=== PATIENT | male | born 1950 | race Two or more races ===

== ENCOUNTER 2018-07-27 10:47 | Inpatient (IN) | payer MEDICAID | END 2018-07-30 11:35 | disposition home or self-care (01) | LOC: ER 10:47 → TELE 17:25 → TELE-WESTW 21:35 | DX: G40.909 Epilepsy, unspecified, not intractable, without status epilepticus (principal); E11.649 Type 2 diabetes mellitus with hypoglycemia without coma; I69.351 Hemiplegia and hemiparesis following cerebral infarction affecting right dominant side; E78.5 Hyperlipidemia, unspecified; I69.320 Aphasia following cerebral infarction; I10 Essential (primary) hypertension ==

== ENCOUNTER 2018-08-04 10:29 | Inpatient (IN) | payer MEDICAID ==
[~2018-08-04] VITALS: Ht 172.7 cm; Wt 78.8 kg
[~2018-08-04 10:29] MED LIST: ASPI81TA10 PO; CARB200T4 PO; ENAL20TA70 PO; GLIP-116 PO; METF1000 PO; SIMV-8 PO
[2018-08-04 13:29] LABS: Basophils # (auto) 0.1 uL; Basophils % (auto) 0.6 % (0.0-2.0); Eosinophils # (auto) 0 uL; Eosinophils % (auto) 0.4 % (0.0-7.0); Hematocrit 32.5 % (41.0-53.0); Hemoglobin 10.6 g/dL (13.5-17.5); Lymphocytes # (auto) 0.9 uL; Lymphocytes % (auto) 9.2 % (10.0-50.0); Mean Corpuscular Hemoglobin 30.6 pg (28.0-32.0); Mean Corpuscular Hgb Conc. 32.6 g/dL (32.0-36.0); Mean Corpuscular Volume 93.8 fL (80.0-100.0); Monocytes # (auto) 0.3 uL; Monocytes % (auto) 2.8 % (0.0-12.0); Neutrophils # (auto) 8.2 uL; Platelet Count (auto) 350 10^3/uL (140-450); Red Blood Cells 3.46 10^6/uL (4.5-5.90); Red Cell Distribution Width 13.6 % (11.8-14.3); White Blood Cell 9.4 10^3/uL (4.4-10.8)
[2018-08-04 13:43] LABS: Potassium 5.2 mmol/L (3.5-5.1)
[2018-08-04 13:50] LABS: Albumin 3.5 g/dL (3.4-5.0); Bilirubin, Total 0.4 mg/dL (0.2-1.0); Calcium 8.5 mg/dL (8.5-10.1); Magnesium 2.8 mg/dL (1.6-2.6); Total Protein 7.7 g/dL (6.4-8.2)
[2018-08-04] MEDS ORDERED: LORazepam 0.5 MG TAB PO PRN (19:00)
[2018-08-04] MEDS ORDERED: DEXTROSE (50%) 50ML SYRG IV PRN (19:00)
[2018-08-04] MEDS ORDERED: TEMAZEPAM 15 MG CAP PO PRN (19:00)
[2018-08-04] MEDS ORDERED: NITROGLYCERIN 0.4 MG SL TAB SL PRN (19:00)
[2018-08-04] MEDS ORDERED: LEVETIRACETAM 500 MG TAB PO ONE (19:00)
[2018-08-04] MEDS ORDERED: ACETAMINOPHEN 500 MG TAB PO PRN (19:00)
[2018-08-04] MEDS ORDERED: LORazepam 2MG/ML-1ML VIAL IV PRN (19:00)
[2018-08-04] MEDS ORDERED: MORPHINE SULFATE 4 MG/ML SYR/VIAL IV PRN ×2 (19:00)
[2018-08-04] MEDS ORDERED: LACTULOSE 20Gm/30ML SOLN PO PRN (19:00)
[2018-08-04] MEDS ORDERED: HYDROcodone-ACET 5/325MG TAB PO PRN (19:00)
[2018-08-04] MEDS ORDERED: PROMETHAZINE HCL 25 MG/ML 1ML IV PRN (19:00)
[2018-08-04] MEDS: SODIUM CHLORIDE 0.9% 1,000 ML IV SCH (19:45)
[2018-08-04] MEDS: glipiZIDE 5 MG TAB PO SCH (19:45)
[2018-08-04] MEDS: ACCU-CHEK COMFORT CURVE STRIP VI SCH (22:00)
[2018-08-04] MEDS: InsuLIN REG 1unit/0.01ml Soln (100units/ml) SC SCH (22:30)
[2018-08-04] MEDS: LEVETIRACETAM 500 MG TAB PO SCH (22:30)
[2018-08-05] MEDS: ACCU-CHEK COMFORT CURVE STRIP VI SCH ×4 (06:45→22:22)
[2018-08-05] MEDS: InsuLIN REG 1unit/0.01ml Soln (100units/ml) SC SCH ×4 (06:45→22:00)
[2018-08-05] MEDS: glipiZIDE 5 MG TAB PO SCH ×3 (07:00→17:04)
[2018-08-05] MEDS: SODIUM CHLORIDE 0.9% 1,000 ML IV SCH ×2 (08:22→21:28)
[2018-08-05] MEDS: ASPirin-EC 81 mg tab PO SCH (09:19)
[2018-08-05] MEDS: PANTOPRAZOLE 40 MG TAB PO SCH (09:19)
[2018-08-05] MEDS: ENOXAPARIN SOD 40 MG/0.4 ML SYRINGE SC SCH (09:19)
[2018-08-05] MEDS: carBAMazepine 200 MG TAB PO SCH (09:20)
[2018-08-05] MEDS: LEVETIRACETAM 500 MG TAB PO SCH ×2 (09:20→22:22)
[2018-08-05 09:35] LABS: Alcohol, Urine < 3.0 mg/dL (0-5); Amphetamine Screen, Urine NEGATIVE (NEGATIVE); Barbiturate Scree,Urine NEGATIVE (NEGATIVE); Benzodiazephine Screen, Urine NEGATIVE (NEGATIVE); Cannabinoid Screen, Urine NEGATIVE (NEGATIVE); Cocaine Screen, Urine NEGATIVE (NEGATIVE); Opiate Scree,Urine NEGATIVE (NEGATIVE); Phencyclidine Screen, Urine NEGATIVE (NEGATIVE)
[2018-08-05 09:37] LABS: Urine Bacteria NONE SEEN /hpf (None Seen); Urine Blood Negative /uL (Negative); Urine Specific Gravity 1.016 (1.001-1.035); Urine WBC <1 /hpf (0 - 3)
[2018-08-05] MEDS ORDERED: ENALAPRIL MALEATE 10 MG TAB PO SCH (10:00)
[2018-08-05 14:00] VITALS: BP 150/70
--- NOTE | 2018-08-05 14:00 | NUR ---
Telemetry admit from ER [facility] SRIVAST[facility] admitted to Telemetry unit after SBAR received. Patient oriented to CHARLEEN GASTON, primary RN, unit, room, bed, and unit policies regarding patient care and visiting hours. Patient now on continuous telemetry monitoring, tele box # 15 and telemetry reading on arrival to unit is . Patient placed on bedside oxygen, weighed by bed scale and encouraged to call if they need something. All questions and concerns addressed, patient verbalized understanding.
--- NOTE | 2018-08-05 14:00 | NUR ---
Dr. Diehl at bedside.
--- NOTE | 2018-08-05 14:30 | NUR ---
MRSA sent to the lab.
[2018-08-05] MEDS ORDERED: PNEUMOCOCCAL VACC POLYS 25 MCG/0.5 ML VIAL IM ONE (14:45)
[2018-08-05] MEDS ORDERED: INFLUENZA QUAD 2018-2019 0.5 ML SYRG IM ONE (14:45)
--- NOTE | 2018-08-05 14:45 | NUR ---
Photos taken to left FA prior admission.
[2018-08-05 17:12] VITALS: BP 144/87
[2018-08-05 22:00] VITALS: BP 146/80
[2018-08-06 04:45] VITALS: BP 121/72
[2018-08-06 06:09] LABS: Basophils # (auto) 0.1 uL; Basophils % (auto) 2.3 % (0.0-2.0); Eosinophils # (auto) 0.2 uL; Hematocrit 28.8 % (41.0-53.0); Hemoglobin 9.5 g/dL (13.5-17.5); Lymphocytes # (auto) 1.5 uL; Lymphocytes % (auto) 27.9 % (10.0-50.0); Mean Corpuscular Hemoglobin 31.1 pg (28.0-32.0); Mean Corpuscular Volume 94.2 fL (80.0-100.0); Monocytes # (auto) 0.3 uL; Monocytes % (auto) 6.2 % (0.0-12.0); Neutrophils # (auto) 3.2 uL; Neutrophils % (auto) 59.6 % (37.0-80.0); Nucleated Red Blood Cells % 0.1 %; Platelet Count (auto) 307 10^3/uL (140-450); Red Blood Cells 3.05 10^6/uL (4.5-5.90); Red Cell Distribution Width 13.5 % (11.8-14.3); White Blood Cell 5.3 10^3/uL (4.4-10.8)
[2018-08-06 06:27] LABS: Albumin 2.8 g/dL (3.4-5.0); Potassium 4.5 mmol/L (3.5-5.1)
[2018-08-06 06:28] LABS: BUN/Creatinine Ratio 17.4; Bilirubin, Total 0.4 mg/dL (0.2-1.0); Total Protein 6.4 g/dL (6.4-8.2)
[2018-08-06] MEDS: InsuLIN REG 1unit/0.01ml Soln (100units/ml) SC SCH ×4 (07:00→21:26)
[2018-08-06] MEDS: glipiZIDE 5 MG TAB PO SCH (07:09)
[2018-08-06] MEDS: ACCU-CHEK COMFORT CURVE STRIP VI SCH ×4 (07:09→21:25)
[2018-08-06 08:00] VITALS: BP 131/74
[2018-08-06] MEDS: ASPirin-EC 81 mg tab PO SCH (09:21)
[2018-08-06] MEDS: PANTOPRAZOLE 40 MG TAB PO SCH (09:21)
[2018-08-06] MEDS: carBAMazepine 200 MG TAB PO SCH (09:21)
[2018-08-06] MEDS: LEVETIRACETAM 500 MG TAB PO SCH ×2 (09:21→21:25)
[2018-08-06] MEDS: ENOXAPARIN SOD 40 MG/0.4 ML SYRINGE SC SCH (09:21)
[2018-08-06 09:33] VITALS: BP 131/74
[2018-08-06] MEDS: SODIUM CHLORIDE 0.9% 1,000 ML IV SCH (10:48)
--- NOTE | 2018-08-06 11:25 | NUR ---
BS 38, 50 % dextrose given, Dr. Diehl paged.
--- NOTE | 2018-08-06 11:40 | NUR ---
BS 199, will continue to monitor.
--- NOTE | 2018-08-06 11:41 | NUR ---
called back received new order, noted and carried out.
[2018-08-06 13:31] VITALS: BP 136/80
--- NOTE | 2018-08-06 14:30 | NUR ---
Dressing changed to the left FA, clean with NSS, pat dry put Thera honey and cover with Optifoam.
[2018-08-06] MEDS: ENALAPRIL MALEATE 10 MG TAB PO SCH (15:12)
[2018-08-06 16:58] VITALS: BP 125/71
[2018-08-06 22:11] VITALS: BP_SYST 126; BP_SYST 136; BP_DIAS 73
--- NOTE | 2018-08-07 04:00 | NUR ---
Dressing changed_ lateral side of LEFT FOREARM Clean with normal saline, patted dry with sterile gauze, covered with optifoam gentle. Yosef honey is not available to apply on wound at this time. Wound ( skin tear) is clean, no blood, drainage coming out. Patient tolerated well and no complained of pain.
[2018-08-07] MEDS: SODIUM CHLORIDE 0.9% 1,000 ML IV SCH ×2 (04:25→13:28)
[2018-08-07 05:00] VITALS: BP 139/73
[2018-08-07] MEDS: ACCU-CHEK COMFORT CURVE STRIP VI SCH ×4 (06:20→22:15)
[2018-08-07] MEDS: InsuLIN REG 1unit/0.01ml Soln (100units/ml) SC SCH ×4 (06:20→22:00)
--- NOTE | 2018-08-07 08:00 | NUR ---
Opening Shift Note Assumed care of patient, awake and alert. No S/S of distress/SOB or pain. Skin is warm and dry to touch, no s/s of hyperglycemia or hypoglycemia noted. Instructed on POC and to call for assist PRN, will continue to monitor for changes Q1hr and PRN.
[2018-08-07] MEDS: LEVETIRACETAM 500 MG TAB PO SCH ×2 (08:58→22:15)
[2018-08-07] MEDS: ENALAPRIL MALEATE 10 MG TAB PO SCH (08:58)
[2018-08-07] MEDS: carBAMazepine 200 MG TAB PO SCH (08:58)
[2018-08-07] MEDS: ASPirin-EC 81 mg tab PO SCH (08:58)
[2018-08-07] MEDS: ENOXAPARIN SOD 40 MG/0.4 ML SYRINGE SC SCH (08:58)
[2018-08-07] MEDS: PANTOPRAZOLE 40 MG TAB PO SCH (08:58)
[2018-08-07 09:47] VITALS: BP 126/65
[2018-08-07 14:46] VITALS: BP 132/70
[2018-08-07 16:51] VITALS: BP 142/72
[2018-08-07 21:33] VITALS: BP 141/77
[2018-08-07 22:19] VITALS: BP_SYST 135; BP_SYST 141; BP_DIAS 76; BP_DIAS 77
[2018-08-08 05:34] VITALS: BP 135/74
[2018-08-08] MEDS: SODIUM CHLORIDE 0.9% 1,000 ML IV SCH (06:30)
[2018-08-08 06:42] LABS: Albumin 2.7 g/dL (3.4-5.0); Potassium 4.5 mmol/L (3.5-5.1)
[2018-08-08 06:43] LABS: Basophils # (auto) 0.1 uL; Basophils % (auto) 2.5 % (0.0-2.0); Eosinophils # (auto) 0.2 uL; Eosinophils % (auto) 4.2 % (0.0-7.0); Hematocrit 28.4 % (41.0-53.0); Hemoglobin 9.6 g/dL (13.5-17.5); Lymphocytes # (auto) 1.3 uL; Lymphocytes % (auto) 24.8 % (10.0-50.0); Mean Corpuscular Hemoglobin 31.8 pg (28.0-32.0); Mean Corpuscular Volume 93.6 fL (80.0-100.0); Monocytes # (auto) 0.4 uL; Monocytes % (auto) 6.9 % (0.0-12.0); Neutrophils # (auto) 3.2 uL; Neutrophils % (auto) 61.6 % (37.0-80.0); Platelet Count (auto) 308 10^3/uL (140-450); Red Blood Cells 3.03 10^6/uL (4.5-5.90); Red Cell Distribution Width 13.4 % (11.8-14.3); White Blood Cell 5.2 10^3/uL (4.4-10.8)
[2018-08-08] MEDS: InsuLIN REG 1unit/0.01ml Soln (100units/ml) SC SCH ×2 (06:44→11:30)
[2018-08-08] MEDS: ACCU-CHEK COMFORT CURVE STRIP VI SCH ×2 (06:44→11:46)
[2018-08-08 06:46] LABS: BUN/Creatinine Ratio 15.2; Bilirubin, Total 0.2 mg/dL (0.2-1.0); Total Protein 6.1 g/dL (6.4-8.2)
--- NOTE | 2018-08-08 07:55 | NUR ---
Opening Shift Note Assumed care of patient, awake and alert. On seizure precaution. No S/S of distress/SOB or pain. Instructed on POC and to call for assist PRN, bed locked in the lowest position, call light within easy reach, will continue to monitor for changes Q1hr and PRN.
[2018-08-08 08:00] VITALS: BP 143/79
[2018-08-08 09:00] VITALS: BP 143/79
[2018-08-08] MEDS: LEVETIRACETAM 500 MG TAB PO SCH (09:44)
[2018-08-08] MEDS: ENALAPRIL MALEATE 10 MG TAB PO SCH (09:45)
[2018-08-08] MEDS: ASPirin-EC 81 mg tab PO SCH (09:45)
[2018-08-08] MEDS: PANTOPRAZOLE 40 MG TAB PO SCH (09:45)
[2018-08-08] MEDS: carBAMazepine 200 MG TAB PO SCH (09:45)
--- NOTE | 2018-08-08 09:45 | NUR ---
DR. CHRISTY AT BEDSIDE. NEW ORDER D/C HOME.
[2018-08-08] MEDS: ENOXAPARIN SOD 40 MG/0.4 ML SYRINGE SC SCH (09:46)
--- NOTE | 2018-08-08 09:52 | NUR ---
PT REFUSED PNA VAC, AND FLU VAC, SON AT BEDSIDE. RISKS AND BENEFITS EXPLAINED.
[2018-08-08 11:07] VITALS: BP 143/97
--- NOTE | 2018-08-08 13:14 | NUR ---
Discharge instructions given as ordered. Encourage to follow up with DR. LAURIE FREEMAN on 08/16/18 @ 0900 as instructed. All questions and concerns addressed. Patient verbalized understanding. Medication reconciliation form completed and copy given to patient. Pt refused vaccines risks and benefits explained. IV removed with catheter intact, pressure dressing applied. Telemetry unit returned to [facility]. Patient taken to vehicle via wheelchair with all personal belongings, accompanied by staff and family member. No distress noted at time of departure.
[2018-08-08 13:24] VITALS: BP 146/71
== END 2018-08-08 13:00 | disposition home or self-care (01) | DRG 53 ==
LOC: ER 10:29 → EDBD 10:29 → TELE 18:51 → TELE-WESTW 08-05 13:50
PROVIDERS: ADMIT Internal Medicine; ATTEND Internal Medicine
DX: G40.409 Other generalized epilepsy and epileptic syndromes, not intractable, without status epilepticus (principal); E44.0 Moderate protein-calorie malnutrition; E11.21 Type 2 diabetes mellitus with diabetic nephropathy; E83.41 Hypermagnesemia; E87.5 Hyperkalemia; I69.351 Hemiplegia and hemiparesis following cerebral infarction affecting right dominant side; I69.320 Aphasia following cerebral infarction; E87.1 Hypo-osmolality and hyponatremia; D64.9 Anemia, unspecified; E11.22 Type 2 diabetes mellitus with diabetic chronic kidney disease; E78.5 Hyperlipidemia, unspecified; I12.9 Hypertensive chronic kidney disease with stage 1 through stage 4 chronic kidney disease, or unspecified chronic kidney disease; N18.9 Chronic kidney disease, unspecified; Z79.82 Long term (current) use of aspirin; Z79.899 Other long term (current) drug therapy; Z87.891 Personal history of nicotine dependence; Z68.26 Body mass index [BMI] 26.0-26.9, adult; Z28.21 Immunization not carried out because of patient refusal
CPT/HCPCS: 36415; 70450; 80053; 80156; 80307; 81001; 82550; 82962; 83036; 83735; 84132; 85025; 87081; 94761; 96360; G0378

== ENCOUNTER 2018-09-24 02:53 | Inpatient (IN) | payer MEDICAID | END 2018-09-30 17:00 | disposition home or self-care (01) | LOC: ER 02:53 → TELE 11:04 → TELE-WESTW 13:35 | DX: G93.40 Encephalopathy, unspecified (principal); N17.0 Acute kidney failure with tubular necrosis; E87.2 Acidosis; K85.10 Biliary acute pancreatitis without necrosis or infection; E11.21 Type 2 diabetes mellitus with diabetic nephropathy; N18.3 Chronic kidney disease, stage 3 (moderate); I69.320 Aphasia following cerebral infarction; K62.89 Other specified diseases of anus and rectum; E11.22 Type 2 diabetes mellitus with diabetic chronic kidney disease; N18.9 Chronic kidney disease, unspecified; N26.1 Atrophy of kidney (terminal) ==

== ENCOUNTER 2018-12-22 16:20 | Emergency (ER) | payer MEDICAID ==
[~2018-12-22] VITALS: Ht 170.2 cm; Wt 56.7 kg
[~2018-12-22 16:20] MED LIST changes: +ENAL20TA PO; -ENAL20TA70 PO; -GLIP-116 PO; +GLIP10TA9 PO; +KEP500T PO
[2018-12-22 20:23] LABS: Basophils # (auto) 0.1 uL; Basophils % (auto) 2.2 % (0.0-2.0); Eosinophils # (auto) 0.1 uL; Eosinophils % (auto) 2.3 % (0.0-7.0); Hematocrit 27.2 % (41.0-53.0); Hemoglobin 8.9 g/dL (13.5-17.5); Lymphocytes # (auto) 1.2 uL; Lymphocytes % (auto) 25.8 % (10.0-50.0); Mean Corpuscular Hemoglobin 30.8 pg (28.0-32.0); Mean Corpuscular Hgb Conc. 32.7 g/dL (32.0-36.0); Monocytes # (auto) 0.5 uL; Monocytes % (auto) 10.3 % (0.0-12.0); Neutrophils # (auto) 2.7 uL; Neutrophils % (auto) 59.4 % (37.0-80.0); Platelet Count (auto) 267 10^3/uL (140-450); Red Blood Cells 2.89 10^6/uL (4.5-5.90); Red Cell Distribution Width 15.8 % (11.8-14.3); White Blood Cell 4.5 10^3/uL (4.4-10.8)
[2018-12-22 20:37] LABS: Blood Urea Nitrogen 30 mg/dL (7-18); Calcium 8.3 mg/dL (8.5-10.1); Chloride 113 mmol/L (98-107); Potassium 4.1 mmol/L (3.5-5.1); Sodium 141 mmol/L (136-145)
[2018-12-22 20:39] LABS: Amylase 85 U/L (25-115); Anion Gap 9 (5-15); BUN/Creatinine Ratio 17.4; Carbon Dioxide 19 mmol/L (21-32); GFR African American 51 mL/min; GFR Non-African American 42 mL/min; Glucose 90 mg/dL (74-106); Lipase 213 U/L (73-393); Magnesium 2.7 mg/dL (1.6-2.6)
[2018-12-22 20:40] LABS: INR 1.09 (0.9-1.15); Partial Thromboplastin Time 31.5 sec (23.64-32.05)
[2018-12-22 20:54] LABS: Alanine Aminotransferase 146 U/L (16-61); Alkaline Phosphatase 1472 U/L (45-117); Aspartate Aminotransferase 108 U/L (15-37); Bilirubin, Total 2.1 mg/dL (0.2-1.0); Total Protein 7.7 g/dL (6.4-8.2)
[2018-12-22 21:02] LABS: Urine Bacteria FEW /hpf (None Seen); Urine Blood 1+ /uL (Negative); Urine Specific Gravity 1.016 (1.001-1.035); Urine WBC 192 /hpf (0 - 3)
[2018-12-22] MEDS ORDERED: cefTRIAXone SOD 1,000 MG VL IM ONE (22:15)
[2018-12-23] VITALS: BP 137/60
== END 2018-12-23 01:37 | disposition home or self-care (01) ==
LOC: ER 16:28
DX: K83.1 Obstruction of bile duct (principal); E11.9 Type 2 diabetes mellitus without complications; E78.5 Hyperlipidemia, unspecified; I10 Essential (primary) hypertension; Z90.49 Acquired absence of other specified parts of digestive tract; Z86.73 Personal history of transient ischemic attack (TIA), and cerebral infarction without residual deficits; Z79.82 Long term (current) use of aspirin; Z79.899 Other long term (current) drug therapy
CPT/HCPCS: 36415; 80053; 81001; 82150; 83690; 83735; 85025; 85610; 85730; 96372; 99283; J0696

== ENCOUNTER 2018-12-23 10:46 | Emergency (ER) | payer MEDICAID, OTHER ==
[~2018-12-23] VITALS: Ht 172.7 cm; Wt 63.5 kg
[~2018-12-23 10:46] MED LIST changes: -ENAL20TA PO; +ENAL20TA70 PO; +GLIP-116 PO; -GLIP10TA9 PO
[2018-12-23 12:16] LABS: Hemoglobin 9.7 g/dL (13.5-17.5); Mean Corpuscular Hemoglobin 30.4 pg (28.0-32.0); Mean Corpuscular Hgb Conc. 32.3 g/dL (32.0-36.0); Mean Corpuscular Volume 93.9 fL (80.0-100.0); Platelet Count (auto) 190 10^3/uL (140-450); Red Blood Cells 3.19 10^6/uL (4.5-5.90); Red Cell Distribution Width 15.7 % (11.8-14.3); White Blood Cell 17.6 10^3/uL (4.4-10.8)
[2018-12-23 12:19] LABS: Albumin 2.6 g/dL (3.4-5.0); Calcium 8.6 mg/dL (8.5-10.1); Potassium 3.9 mmol/L (3.5-5.1)
[2018-12-23 12:26] LABS: Basophils % (manual) 0 (0.0-2.0); Blast Cells 0; Eosinophils % (manual) 0 (0-7); Metamyelocytes % 0; Myelocytes % 0; Promyelocytes % 0; Reactive Lymphocytes 0
[2018-12-23 12:33] LABS: BUN/Creatinine Ratio 15.1; Bilirubin, Total 3.7 mg/dL (0.2-1.0); Total Protein 7.3 g/dL (6.4-8.2)
[2018-12-23 14:21] LABS: Band Neutrophils % (manual) 16; Lymphocytes % (manual) 6 (10.0-50.0); Monocytes % (manual) 4 (0-12)
[2018-12-23 14:47] LABS: Urine Bacteria MANY /hpf (None Seen); Urine Blood 2+ /uL (Negative); Urine Hyaline Cast FEW /lpf (0 - 2); Urine Mucus MODERATE (None Seen); Urine Specific Gravity 1.017 (1.001-1.035); Urine WBC 248 /hpf (0 - 3); Urine WBC Clumps PRESENT /hpf (None Seen)
[2018-12-23] MEDS ORDERED: metroNIDAZOLE 500MG/100ML 100 ML IV ONE (15:00)
[2018-12-23] MEDS ORDERED: cefTRIAXone 1GM/50ML D5W 50 ML IV ONE (15:00)
[2018-12-23] MEDS ORDERED: SODIUM CHLORIDE 0.9% 1,000 ML IV ONE (15:15)
[2018-12-23] MEDS ORDERED: ONDANSETRON HCL 4 MG/2 ML VIAL IV ONE (17:45)
[2018-12-23] MEDS ORDERED: HYDROmorphone HCL 2 MG/ML VL IV ONE (17:45)
[2018-12-23 19:04] VITALS: BP 126/57
== END 2018-12-23 19:28 | disposition short-term general hospital (02) ==
LOC: EDBD 10:46 → EDUNIT# 10:52 → ER 10:52
DX: K83.1 Obstruction of bile duct (principal); D72.829 Elevated white blood cell count, unspecified; N17.9 Acute kidney failure, unspecified; E11.9 Type 2 diabetes mellitus without complications; E78.5 Hyperlipidemia, unspecified; I10 Essential (primary) hypertension; Z86.73 Personal history of transient ischemic attack (TIA), and cerebral infarction without residual deficits; Z90.49 Acquired absence of other specified parts of digestive tract
CPT/HCPCS: 36415; 74176; 80053; 81001; 82150; 83690; 85007; 85027; 96365; 96368; 96375; 99285; J0696; J1170; J2405; J3490

== ENCOUNTER 2019-04-06 07:32 | Inpatient (IN) | payer MEDICAID ==
[~2019-04-06] VITALS: Ht 167.6 cm; Wt 58.8 kg
[~2019-04-06 07:32] MED LIST changes: +ENAL20TA PO; -ENAL20TA70 PO; -GLIP-116 PO; +GLIP10TA9 PO
[2019-04-06] MEDS ORDERED: SODIUM CHLORIDE 0.9% 1,000 ML IV ONE ×4 (08:18→09:55)
[2019-04-06 09:07] LABS: Alanine Aminotransferase 32 U/L (16-61); Albumin 2.1 g/dL (3.4-5.0); Anion Gap 8 (5-15); Aspartate Aminotransferase 56 U/L (15-37); BUN/Creatinine Ratio 14.8; Blood Urea Nitrogen 22 mg/dL (7-18); Calcium 8.2 mg/dL (8.5-10.1); Carbon Dioxide 21 mmol/L (21-32); Chloride 109 mmol/L (98-107); GFR African American 60 mL/min; GFR Non-African American 49 mL/min; Glucose 138 mg/dL (74-106); Potassium 3.7 mmol/L (3.5-5.1); Sodium 138 mmol/L (136-145)
[2019-04-06 09:15] LABS: Bilirubin, Total 2.4 mg/dL (0.2-1.0); Total Protein 7.1 g/dL (6.4-8.2)
[2019-04-06 09:21] LABS: Basophils # (auto) 0 uL; Basophils % (auto) 0.4 % (0.0-2.0); Eosinophils # (auto) 0 uL; Eosinophils % (auto) 0.3 % (0.0-7.0); Hematocrit 30.4 % (41.0-53.0); Hemoglobin 10.1 g/dL (13.5-17.5); Lymphocytes # (auto) 0.5 uL; Lymphocytes % (auto) 4.3 % (10.0-50.0); Mean Corpuscular Hemoglobin 30.8 pg (28.0-32.0); Mean Corpuscular Hgb Conc. 33.3 g/dL (32.0-36.0); Mean Corpuscular Volume 92.7 fL (80.0-100.0); Monocytes # (auto) 0.6 uL; Monocytes % (auto) 5.6 % (0.0-12.0); Neutrophils # (auto) 10.4 uL; Neutrophils % (auto) 89.4 % (37.0-80.0); Platelet Count (auto) 299 10^3/uL (140-450); Red Blood Cells 3.28 10^6/uL (4.5-5.90); Red Cell Distribution Width 15.2 % (11.8-14.3); White Blood Cell 11.6 10^3/uL (4.4-10.8)
[2019-04-06 09:48] LABS: Alkaline Phosphatase 1290 U/L (45-117)
[2019-04-06 09:51] LABS: Urine Amorphous Crystal FEW /hpf (None Seen); Urine Bacteria FEW /hpf (None Seen); Urine Blood 1+ /uL (Negative); Urine Budding Yeast MODERATE /hpf (None Seen); Urine Hyaline Cast MANY /lpf (0 - 2); Urine Mucus FEW (None Seen); Urine Specific Gravity 1.018 (1.001-1.035); Urine WBC 96 /hpf (0 - 3)
[2019-04-06] MEDS ORDERED: PIPERACILLIN-TAZOB 3.375GM 100 ML IV ONE (10:00)
[2019-04-06] MEDS ORDERED: VANCOMYCIN 1GM/250ML 250 ML IV ONE (10:00)
[2019-04-06] MEDS ORDERED: TAMS0.4C36 PO (10:19)
[2019-04-06] MEDS ORDERED: LACTULOSE 20Gm/30ML SOLN PO PRN (11:00)
[2019-04-06] MEDS ORDERED: traMADol HCL 50 MG TAB PO PRN (11:00)
[2019-04-06] MEDS ORDERED: DEXTROSE (50%) 50ML SYRG IV PRN (11:00)
[2019-04-06] MEDS ORDERED: ALBUTEROL SULF 2.5 MG/0.5ML(0.5%) NEB SOLN NEB PRN (11:00)
[2019-04-06] MEDS ORDERED: NITROGLYCERIN 0.4 MG SL TAB SL PRN (11:00)
[2019-04-06] MEDS ORDERED: TEMAZEPAM 15 MG CAP PO PRN (11:00)
[2019-04-06] MEDS ORDERED: MORPHINE SULF INJ 2 MG/ML SYRINGE 1ML IV PRN (11:00)
[2019-04-06] MEDS ORDERED: PROMETHAZINE HCL 25 MG/ML 1ML IV PRN (11:00)
[2019-04-06 11:14] VITALS: BP 139/68
[2019-04-06] MEDS: SODIUM CHLORIDE 0.9% 1,000 ML IV SCH ×2 (12:28→15:21)
--- NOTE | 2019-04-06 13:31 | NUR ---
RECEIVED PT FROM ER STAFF. PT IN ROOM IN HIGH FOWLERS. AWAKE, ALERT, PT IS NON-VERBAL. ABLE TO FOLLOW COMMANDS. HOPKINS BCATHETER IN PLACE WITH 100 ML OF YELLOW URINE. PT HAS A RIGHT CHEST TUBE PIGTAIL, WITH CLEAR BROWN RESIDUAL IN COLLECTING BAG. NO S/S OF DISTRESS AT MOMENT. EFFORTLESS BREATHING ON ROOM AIR. IV PRESENT TO RIGHT HAND #20. BED LOCKED AND IN LOWEST POSITION, CALL LIGHT WITHIN REACH. PT ORIENTED TO ROOM ENVIRONMENT. WILL CONTINUE TO MONITOR.
[2019-04-06] MEDS: LEVOFLOXACIN 500MG 100 ML IV SCH (13:48)
[2019-04-06] MEDS: ACCU-CHEK COMFORT CURVE STRIP VI SCH ×3 (13:48→20:10)
[2019-04-06] MEDS: CLINDAMYCIN 600MG IV 50 ML IV SCH ×2 (15:20→21:28)
[2019-04-06 17:09] VITALS: BP 141/70
--- NOTE | 2019-04-06 18:00 | NUR ---
PT IN LOW FOWLERS, AWAKE, ALERT, ABLE TO FOLLOW SIMPLE COMMANDS. HOPKINS CATHETER IN PLACE, RIGHT SIDED CHEST TUBE IN PLACE, OUTPUT: 100ML CLEAR BROWN RESIDUAL. SEIZURE PRECAUTIONS IN PLACE, SCDs IN PLACE, PT TOLERATING WELL. BED LOCKED AND IN LOWEST POSITION, CALL LIGHT WITHIN REACH.
[2019-04-06] MEDS: TAMSULOSIN HYDROCHLORIDE 0.4 MG CAP PO SCH (18:01)
--- NOTE | 2019-04-06 19:23 | NUR ---
Opening Shift Note Assumed care of patient, awake and alert x 3 but is nearly aphasic, able to answer questions with one word or a nod. Bed is in lowest position No S/S of distress/SOB or pain. Board updated. Tele box number matches monitor and leads are in correct placement. NS infusing at ordered. Rate. Seizure precautions in place. Suction available at bedside. Will catheter is hanging below bladder with collection bad secured to non-moveable part of bedframe. Instructed on POC and to call for assist PRN, will continue to monitor for changes Q1hr and PRN.
--- NOTE | 2019-04-06 20:14 | NUR ---
PT ASSESSED FOR PRN MED NEB. SPO2 96% ON RA, HR 56, RR 16, BS CLEAR. NO DISTRESS NOTED. NO TX INDICATED. WILL CONTINUE TO MONITOR PT.
[2019-04-06] MEDS: LEVETIRACETAM 500 MG TAB PO SCH (21:28)
[2019-04-06] MEDS: MORPHINE SULFATE 4 MG/ML SYR/VIAL IV PRN (21:44)
[2019-04-06 22:00] VITALS: BP 125/71
[2019-04-07] MEDS: ACCU-CHEK COMFORT CURVE STRIP VI SCH ×7 (00:28→23:42)
[2019-04-07] MEDS: SODIUM CHLORIDE 0.9% 1,000 ML IV SCH ×3 (03:04→16:54)
[2019-04-07 05:00] VITALS: BP 125/68
[2019-04-07] MEDS: CLINDAMYCIN 600MG IV 50 ML IV SCH ×3 (05:08→21:58)
[2019-04-07 06:15] LABS: Basophils # (auto) 0 uL; Basophils % (auto) 0.7 % (0.0-2.0); Eosinophils # (auto) 0.2 uL; Eosinophils % (auto) 3.4 % (0.0-7.0); Hematocrit 25.8 % (41.0-53.0); Hemoglobin 8.7 g/dL (13.5-17.5); Lymphocytes % (auto) 17.2 % (10.0-50.0); Mean Corpuscular Hemoglobin 30.7 pg (28.0-32.0); Mean Corpuscular Hgb Conc. 33.7 g/dL (32.0-36.0); Mean Corpuscular Volume 91.3 fL (80.0-100.0); Monocytes # (auto) 0.4 uL; Monocytes % (auto) 7.7 % (0.0-12.0); Neutrophils # (auto) 4.1 uL; Platelet Count (auto) 250 10^3/uL (140-450); Red Blood Cells 2.82 10^6/uL (4.5-5.90); Red Cell Distribution Width 14.9 % (11.8-14.3); White Blood Cell 5.7 10^3/uL (4.4-10.8)
[2019-04-07 06:32] LABS: Albumin 1.7 g/dL (3.4-5.0); BUN/Creatinine Ratio 15.3; Calcium 7.5 mg/dL (8.5-10.1); Potassium 4.2 mmol/L (3.5-5.1)
--- NOTE | 2019-04-07 06:55 | NUR ---
100 mls of black-yellow drainage from right chest drainage tube.
[2019-04-07 08:30] VITALS: BP 145/68
--- NOTE | 2019-04-07 08:30 | NUR ---
DRESSING CHANGED TO RIGHT CHEST TUBE. PT TOLERATED PROCEDURE WELL. CALL LIGHT WITHIN REACH TO LEFT SIDE. WILL CONTINUE TO MONITOR.
[2019-04-07] MEDS ORDERED: LEVOFLOXACIN 500MG 100 ML IV SCH (10:00)
[2019-04-07] MEDS: LEVOFLOXACIN 500MG 100 ML IV SCH (10:45)
[2019-04-07] MEDS: LEVETIRACETAM 500 MG TAB PO SCH ×2 (10:46→21:58)
[2019-04-07] MEDS: ASPirin-EC 81 mg tab PO SCH (10:46)
[2019-04-07] MEDS: carBAMazepine 200 MG TAB PO SCH (10:46)
[2019-04-07] MEDS: PANTOPRAZOLE 40 MG TAB PO SCH (10:46)
[2019-04-07] MEDS: ENALAPRIL MALEATE 10 MG TAB PO SCH (10:47)
--- NOTE | 2019-04-07 11:48 | NUR ---
Nutrition consult/assessment Notes please see attached link for complete assessment Est. Needs BW [id number] kcal (25-30 kcal/kgBW), 49-61 gms pro (0.8-1.0 gms/kgBW r/t elev RFT, wounds severe hypoalb, CKD). Will continue to monitor pertinent labs and reassess nutrient need prn Addendum: 04/07/19 at [address] Amended: Links added.
[2019-04-07 13:31] VITALS: BP 137/71
--- NOTE | 2019-04-07 15:58 | NUR ---
Respiratory note: PT FOUND ON ROOM AIR WITH NO DISTRESS NOTED. PT IS AWAKE, ALERT AND RESPONSIVE. SPO2 95% HR 49, RR 18, BS CLEAR AND DIMINISHED. PT DENIES ANY SOB AT THIS TIME, PT NOTIFIED TO PUSH CALL BUTTON AND HAVE RT PAGED IF SOB OCCURS. NO TX INDICATED AT THIS TIME.
[2019-04-07] MEDS: TAMSULOSIN HYDROCHLORIDE 0.4 MG CAP PO SCH (16:54)
[2019-04-07 17:16] VITALS: BP 142/55
--- NOTE | 2019-04-07 21:12 | NUR ---
Dressing change performed on chest tube. Patient tolerated well.
[2019-04-07 22:00] VITALS: BP 142/70
[2019-04-07] MEDS: MORPHINE SULFATE 4 MG/ML SYR/VIAL IV PRN (23:42)
[2019-04-08] MEDS: SODIUM CHLORIDE 0.9% 1,000 ML IV SCH ×2 (03:05→10:27)
[2019-04-08] MEDS: ACCU-CHEK COMFORT CURVE STRIP VI SCH ×4 (04:15→17:42)
[2019-04-08] MEDS: MORPHINE SULFATE 4 MG/ML SYR/VIAL IV PRN (04:21)
[2019-04-08 05:00] VITALS: BP 135/70
[2019-04-08] MEDS: CLINDAMYCIN 600MG IV 50 ML IV SCH ×3 (05:33→22:23)
[2019-04-08 06:47] LABS: Basophils # (auto) 0.2 uL; Basophils % (auto) 4.6 % (0.0-2.0); Eosinophils # (auto) 0.3 uL; Eosinophils % (auto) 6.1 % (0.0-7.0); Hematocrit 25.6 % (41.0-53.0); Hemoglobin 8.6 g/dL (13.5-17.5); Lymphocytes # (auto) 1.2 uL; Lymphocytes % (auto) 23.2 % (10.0-50.0); Mean Corpuscular Hemoglobin 30.7 pg (28.0-32.0); Mean Corpuscular Hgb Conc. 33.5 g/dL (32.0-36.0); Mean Corpuscular Volume 91.6 fL (80.0-100.0); Monocytes # (auto) 0.5 uL; Monocytes % (auto) 8.9 % (0.0-12.0); Neutrophils % (auto) 57.2 % (37.0-80.0); Platelet Count (auto) 245 10^3/uL (140-450); Red Blood Cells 2.79 10^6/uL (4.5-5.90); Red Cell Distribution Width 14.7 % (11.8-14.3); White Blood Cell 5.2 10^3/uL (4.4-10.8)
--- NOTE | 2019-04-08 06:47 | NUR ---
75 mls of yellow-green drainage from chest tube drain.
[2019-04-08 06:57] LABS: INR 1.38 (0.9-1.15); Partial Thromboplastin Time 35.9 sec (23.64-32.05)
[2019-04-08 07:08] LABS: BUN/Creatinine Ratio 13.6; Calcium 7.9 mg/dL (8.5-10.1); Potassium 4.1 mmol/L (3.5-5.1)
--- NOTE | 2019-04-08 07:24 | NUR ---
Respiratory note: PT DOES NOT APPEAR TO BE IN RESPIRATORY DISTRESS AT THIS TIME. SPO2 96 ON RA HR 44 RR 16 BS CLEAR THROUGHOUT. PT EDUCATED ON NURSE CALL BUTTON IN CASE OF SOB.
[2019-04-08 08:09] VITALS: BP 141/69
--- NOTE | 2019-04-08 08:11 | NUR ---
OPENING SHIFT NOTE: PATIENT RESTING IN BED, AWAKE, ALERT AND ORIENTED, ABLE TO NOD HEAD IN UNDERSTANDING ON QUESTIONS. UPDATED PATIENT ON PLAN OF CARE. PATIENT REFUSING TO TURN AT THIS TIME. HOPKINS HUNG BELOW BLADDER, AND FREE OF KINKS. DRESSING TO RIGHT CHEST CHEST CDI AND DRAINING WELL. ACCUCHECK 66. CALL LIGHT WITHIN REACH. BED IN LOWEST LOCKED POSITION. WILL CONTINUE TO MONITOR.
[2019-04-08] MEDS: LEVETIRACETAM 500 MG TAB PO SCH ×2 (10:19→22:23)
[2019-04-08] MEDS: ENALAPRIL MALEATE 10 MG TAB PO SCH (10:19)
[2019-04-08] MEDS: PANTOPRAZOLE 40 MG TAB PO SCH (10:19)
[2019-04-08] MEDS: carBAMazepine 200 MG TAB PO SCH (10:19)
[2019-04-08] MEDS: LEVOFLOXACIN 500MG 100 ML IV SCH (10:19)
[2019-04-08] MEDS: ASPirin-EC 81 mg tab PO SCH (10:19)
--- NOTE | 2019-04-08 10:35 | NUR ---
WOUND CARE NOTE: IN TO SEE PATIENT AT THIS TIME FOR LOW BRI SCORES/IMMOBILITY. PATIENT ADMITTED TO [facility] WITH DIAGNOSIS OF HYPOGLYCEMIA, PNA, DEHYDRATION. CURRENT BRI SCORE IS 13. PATIENT DOES FOLLOW COMMANDS, AND CAN HELP TURN/REPOSITION SELF WITH MODERATE ASSISTANCE BY STAFF. HE IS WOUND FREE AT THIS TIME, WITH PINK, BLANCHABLE SKIN NOTED TO BONY PROMINENCES. PATIENT WOULD BENEFIT FROM SKIN/WOUND CARE PLAN, FREQUENT TURN SCHEDULE Q 2 HOURS, PRN CONDITION PERMITS, WITH PRESSURE REDISTRIBUTION USING PILLOWS/WEDGES, BID/PRN APPLICATION WITH MOISTURE BARRIER CREAM, OPTIFOAM GENTLE SACRAL DRESSING PREVENTATIVE, DIETARY CONSULT, CONTINUED MONITORING BY WOUND CARE TEAM.
--- NOTE | 2019-04-08 10:38 | NUR ---
DR. BAILEY AT BEDSIDE. REQUESTING FAMILY TO BRING HOME MEDICATIONS IN FOR MD REVIEW AND REQUEST PAPERWORK FROM [place]. FAMILY CALLED AND MADE AWARE. INFORMED FAMILY MD BAILEY LEAVING AT 1600.
[2019-04-08 13:00] VITALS: BP 141/67
--- NOTE | 2019-04-08 15:37 | NUR ---
PATIENT FAMILY AT BEDSIDE, REQUESTING TO SPEAK WITH MD. BAILEY.
[2019-04-08 16:52] VITALS: BP 115/58
[2019-04-08] MEDS: TAMSULOSIN HYDROCHLORIDE 0.4 MG CAP PO SCH (17:43)
--- NOTE | 2019-04-08 19:24 | NUR ---
CARE ENDORSED TO TASHI RILEY.
--- NOTE | 2019-04-08 19:25 | NUR ---
Opening Shift Note Assumed care of patient, awake and alert. No S/S of distress/SOB or pain. Instructed on POC and to call for assist PRN, will continue to monitor for changes Q1hr and PRN.
[2019-04-08 22:04] VITALS: BP 126/68
[2019-04-09 05:00] VITALS: BP 141/78
[2019-04-09] MEDS: ACCU-CHEK COMFORT CURVE STRIP VI SCH ×4 (06:00→17:56)
[2019-04-09] MEDS: CLINDAMYCIN 600MG IV 50 ML IV SCH ×3 (06:39→22:07)
--- NOTE | 2019-04-09 07:25 | NUR ---
OPENING SHIFT NOTE: PATIENT RESTING IN BED. EVEN AND UNLABORED RESPIRATIONS NOTED. PATIENT SMILING. UPDATED ON PLAN OF CARE FOR THE DAY. CALL LIGHT PUT WITHIN REACH, WILL CONTINUE TO MONITOR
[2019-04-09 09:00] VITALS: BP 132/68
--- NOTE | 2019-04-09 09:11 | NUR ---
PATIENT'S BILIARY DRAIN EMPTIED FOR MORE ACCURATE OUTPUT DURING 12 HR SHIFT. 65 ML DARK GREEN FLUID DRAINED.
--- NOTE | 2019-04-09 09:45 | NUR ---
HOPKINS CATHETER DISCONTINUED, 1300 ML YELLOW CLEAR URINE DRAINED UPON REMOVAL. 10CC OF SALINE ASPIRATED OUT OF BALLOON. CATHETER INTACT. URINAL PLACED WITHIN REACH, EDUCATED PATIENT ON USE.
--- NOTE | 2019-04-09 09:46 | NUR ---
FULL LINEN CHANGE, GOWN, AND BED BATH PERFORMED. PATIENT SMILING, AND APPEARS VERY HAPPY.
[2019-04-09] MEDS: ASPirin-EC 81 mg tab PO SCH (10:28)
[2019-04-09] MEDS: PANTOPRAZOLE 40 MG TAB PO SCH (10:28)
[2019-04-09] MEDS: LEVETIRACETAM 500 MG TAB PO SCH ×2 (10:28→22:07)
[2019-04-09] MEDS: carBAMazepine 200 MG TAB PO SCH (10:29)
[2019-04-09] MEDS: ENALAPRIL MALEATE 10 MG TAB PO SCH (10:29)
--- NOTE | 2019-04-09 10:29 | NUR ---
ASSISTED PATIENT UP TO CHAIR.
--- NOTE | 2019-04-09 12:12 | NUR ---
BLADDER SCAN COMPLETE 142 IN BLADDER. ASSISTED PATIENT TO TOILET WITH SEALER DRY CELL, AND MD. PATIENT UNABLE TO VOID AT THIS TIME. MD BAILEY ORDERED TO RE-ASSESS. ENCOURAGE USE OF URINAL.
[2019-04-09 13:00] VITALS: BP 139/73
--- NOTE | 2019-04-09 14:10 | NUR ---
SPOKE WITH MD BAILEY. UPDATED HER ON DR. BARRY'S CONSULT NOTE. NO CHANGES TO SEIZURE MADES MADE BUT HE RECOMMENDS BRAIN MRI, AND EEG. PATIENT HAD BOTH DONE AT AN EARLIER VISIT IN AUGUST. MD BAILEY MADE AWARE, AND ASKED TO CALL HER BACK WHEN NEPHEW COMES TO VISIT.
--- NOTE | 2019-04-09 14:30 | NUR ---
BLADDER SCAN COMPLETED. 250 IN BLADDER, NO URINAL IN URINAL. ASSISTED PATIENT TO TOILET PER PATIENT REQUEST. PATIENT CLOSED DOOR FOR PRIVACY, AND FLUSHED BEFORE THIS RN COULD ASSESS FOR URINE OUTPUT. CHRISTOPHER ASSISTED THIS RN WITH LANGUAGE BARRIER, AND PATIENT CONFIRMED A BOWEL MOVEMENT, BUT WAVED ARM ACROSS CHEST INDICATING A NO FOR URINE.
--- NOTE | 2019-04-09 15:50 | NUR ---
FAMILY AT BEDSIDE- PAGED DR. BAILEY.
--- NOTE | 2019-04-09 16:44 | NUR ---
MD. BAILEY AT BEDSIDE: MD UPDATED PATIENT AND FAMILY OF URINARY RETENTION SINCE HOPKINS CATHETER REMOVED. DISCUSSED PLAN OF CARE AND FAMILY AGREED TO STAYING ANOTHER NIGHT AND SEEING UROLOGIST INTERNALLY INSTEAD OF TRAVELING TO [facility] FOR APPOINTMENT WITH ASSISTANT AUTO CENTER MANAGER TUESDAY 04/10. CONSULT PLACED FOR UROLOGIST. MD ALSO UPDATED FAMILY REGARDING THE PATIENT'S NO LONGER NEED FOR ORAL ANTIDIABETICS AT THIS TIME. PLANS TO CONTINUE SEIZURE MEDS, AND AVOID SEIZURE TRIGGERS; BRIGHT LIGHT, LOW BLOOD SUGAR, AND FEVERS. REGARDING BILIARY DRAIN, FAMILY UPDATED MD OF STATUS. DRAIN IS PERMANENT, WITH ORDERS FROM [facility] TO CHANGE THE BAG EVERY 4 MONTHS AT FACILITY SINCE PATIENT IS HIGH RISK FOR STRICTURE REPAIR SURGERY.
[2019-04-09 17:00] VITALS: BP 135/73
[2019-04-09] MEDS: TAMSULOSIN HYDROCHLORIDE 0.4 MG CAP PO SCH (17:56)
--- NOTE | 2019-04-09 18:11 | NUR ---
IV SELF-REMOVED. MANUAL PRESSURE APPLIED. CATHETER INTACT.
--- NOTE | 2019-04-09 19:24 | NUR ---
CARE ENDORSED TO TASHI RILEY.
--- NOTE | 2019-04-09 20:00 | NUR ---
Pt unable to urinate. Bladder scan performed and showed 544 ml.
--- NOTE | 2019-04-09 21:15 | NUR ---
Gary catheter reinsertion Patient assessed and determined to be in need of gary catheter. Order was already obtained from MD. Patient educated on catheter and reason for insertion. All questions answered. Gary catheter 16 guage Czech inserted with clean sterile technique. Patient tolerated well.
[2019-04-09 22:00] VITALS: BP 145/74
[2019-04-10 04:36] VITALS: BP 130/70
[2019-04-10] MEDS: ACCU-CHEK COMFORT CURVE STRIP VI SCH ×4 (06:00→18:27)
[2019-04-10] MEDS: CLINDAMYCIN 600MG IV 50 ML IV SCH (06:14)
[2019-04-10 08:00] VITALS: BP 143/70
--- NOTE | 2019-04-10 08:00 | NUR ---
OPENING SHIFT NOTE ASSUMED CARE OF PATIENT AWAKE AND ALERTX3. NO S/S OF DISTRESS OR SOB. PATIENT C/O OF LOWER PAIN WILL MEDICATE PRESCRIBED BY MD.BED AT LOWEST LOCKED POSITION WITH , PADDED SIDERAILS UPX2, AND CALL LIGHT WITHIN REACH.SEIZURE AND FALL PRECAUTIONS IN PLACE. INSTRUCTED ON POC AND TO CALL FOR ASSISTANCE PRN, WILL CONTINUE TO MONITOR FOR CHANGE Q1HR AND PRN.
[2019-04-10 09:00] VITALS: BP 131/68
[2019-04-10] MEDS: ENALAPRIL MALEATE 10 MG TAB PO SCH (09:47)
[2019-04-10] MEDS: LEVETIRACETAM 500 MG TAB PO SCH (09:47)
[2019-04-10] MEDS: carBAMazepine 200 MG TAB PO SCH (09:47)
[2019-04-10] MEDS: PANTOPRAZOLE 40 MG TAB PO SCH (09:47)
[2019-04-10] MEDS: ASPirin-EC 81 mg tab PO SCH (09:48)
[2019-04-10 10:01] LABS: Basophils # (auto) 0.1 uL; Basophils % (auto) 1.4 % (0.0-2.0); Eosinophils # (auto) 0.2 uL; Eosinophils % (auto) 3.5 % (0.0-7.0); Hematocrit 27.9 % (41.0-53.0); Hemoglobin 9.6 g/dL (13.5-17.5); Lymphocytes % (auto) 16.5 % (10.0-50.0); Mean Corpuscular Hemoglobin 31.1 pg (28.0-32.0); Mean Corpuscular Hgb Conc. 34.5 g/dL (32.0-36.0); Mean Corpuscular Volume 90.3 fL (80.0-100.0); Monocytes # (auto) 0.3 uL; Monocytes % (auto) 5.5 % (0.0-12.0); Neutrophils # (auto) 4.6 uL; Neutrophils % (auto) 73.1 % (37.0-80.0); Platelet Count (auto) 263 10^3/uL (140-450); Red Blood Cells 3.08 10^6/uL (4.5-5.90); Red Cell Distribution Width 14.7 % (11.8-14.3); White Blood Cell 6.3 10^3/uL (4.4-10.8)
[2019-04-10 10:18] LABS: Calcium 7.9 mg/dL (8.5-10.1); Potassium 4.2 mmol/L (3.5-5.1)
[2019-04-10 10:20] LABS: BUN/Creatinine Ratio 13.9
--- NOTE | 2019-04-10 12:21 | NUR ---
Nutrition Consult and Follow-up Notes Wt.: 58.8 kg as of yesterday. Pt's with immediate family member at bedside, denies any discomfort when rounded this morning. 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 Pt's currently on Consistent Carb diet with inadequate PO intake aeb 50% ave. consumed meals (x5) in last 2.5 days d/t pt refused, per nursing. Encouraged pt to increase food intake through small frequent meals as tolerated. Provide verbal and written nutrition educ. re: current therapeutic diet and they verbalized understanding. Noted pt's for active GI, Wound, Neurology, Urology consults. Est. Needs BW [id number] kcal (25-30 kcal/kgBW), 49-61 gms pro (0.8-1.0 gms/kgBW r/t elev RFT, wounds severe hypoalb, CKD). Will continue to monitor pertinent labs and reassess nutrient need prn Labs: Gluc 111 H, Cl 108 H, BUN 24 H, Ca 7.9 L; Tpro 6.0 L, Alb 1.7 L, Tot manny 2.0 H Skin: Jerman scale 13, mod risk, pt's medial sacrum blanchable redness per mortgage banker. Pls refer to latest member certification manager's notes for further details re:tx plans. GI: Pt had 2x BM yesterday per mortgage banker. PES: Increased nutrient needs r/t current/chronic medical/nutritional status aeb 91% IBW. BMI 20.9 kg/m2, severe hypoalbuminemia, <75%% consumed meals. Altered nutrition related lab values r/t current/chronic medical condition aeb elev RFT hypocalcemia, severe hypoalb, hyperbil Will continue to monitor PO intake, skin status, pertinent labs and weight trend. F/u in 3 to 5 days. Rec.: 1.) Consider Glucerna Shakes 1 carton TID. 2.) If Albumin continues trending down, consider Prostat 1 pkt BID. 3.) Consider daily MVI with minerals and Asc acid 500 mgs BID prn. 4.) Continue close supervision and feeding assistance prn during meals. 5.) Refer pt to CDE/RD for further nutrition education and weight monitoring upon discharge. 6.) Continue current plan of care. Thank you for this consult.
[2019-04-10 13:00] VITALS: BP 132/71
[2019-04-10] MEDS ORDERED: SODIUM CHLORIDE 0.9% 1,000 ML IV SCH (13:00)
[2019-04-10 13:28] VITALS: BP 132/71
[2019-04-10 13:47] LABS: Free T4 (Free Thyroxine) 0.9 ng/dL (0.89-1.76)
[2019-04-10 13:48] LABS: Folate (Folic Acid) 13.99 ng/mL (5.38-24)
--- NOTE | 2019-04-10 16:17 | NUR ---
Discharge planning per consult, patient has orders to dc with [facility] for Will care. [facility], placed a follow up call, spoke with Catrina and was advised that they will accept patient onto care and start of care will start within 24-48 hours. Auth requested from [facility]; spoke with pillowcase cleaner Shantal and she was advised that she will email her coordinator to generate the auth. Nurse Ana was advised of dc plan. Addendum: 04/10/19 at 1625 by JESUS PEGUERO Amended: Links added.
[2019-04-10 17:00] VITALS: BP 124/83
--- NOTE | 2019-04-10 18:00 | NUR ---
Accu check. Patient's blood sugar is 82, No s/s of dizziness/distress. Patient alert and oriented x3. Provided patient with an orange juice and gonsalo crackers. Family at bedside.
--- NOTE | 2019-04-10 18:00 | NUR ---
BILIARY DRAIN BILIARY DRAIN LOCATED ON RIGHT MID/CHEST CLEAN DRY AND INTACT. COLLECTED 850 GREENISH FLUID. PATIENT TOLERATED WELL.
[2019-04-10] MEDS: TAMSULOSIN HYDROCHLORIDE 0.4 MG CAP PO SCH (18:27)
--- NOTE | 2019-04-10 18:30 | NUR ---
Discharge instructions given as ordered. Encourage to follow up with PMD as instructed. All questions and concerns addressed. Patient verbalized understanding. Medication reconciliation form completed and copy given to patient. IV removed with catheter intact, pressure dressing applied, Will catheter intact and switched to a leg drain. Educated patient and family on Will care. Telemetry unit returned to ICU. Patient taken to vehicle via wheelchair with all personal belongings, accompanied by staff and family member. No distress noted at time of departure.
== END 2019-04-10 18:30 | disposition home or self-care (01) | DRG 420 ==
LOC: EDBD 07:32 → ER 07:32 → TELE 07:33 → TELE-EAST 13:02
PROVIDERS: ADMIT Internal Medicine; ATTEND Internal Medicine
DX: E11.649 Type 2 diabetes mellitus with hypoglycemia without coma (principal); E43 Unspecified severe protein-calorie malnutrition; J18.9 Pneumonia, unspecified organism; G93.41 Metabolic encephalopathy; K83.1 Obstruction of bile duct; E11.21 Type 2 diabetes mellitus with diabetic nephropathy; G40.409 Other generalized epilepsy and epileptic syndromes, not intractable, without status epilepticus; I69.351 Hemiplegia and hemiparesis following cerebral infarction affecting right dominant side; Z86.74 Personal history of sudden cardiac arrest; N39.0 Urinary tract infection, site not specified; E86.0 Dehydration; N18.3 Chronic kidney disease, stage 3 (moderate); D64.9 Anemia, unspecified; E03.9 Hypothyroidism, unspecified; E11.22 Type 2 diabetes mellitus with diabetic chronic kidney disease; E78.5 Hyperlipidemia, unspecified; I12.9 Hypertensive chronic kidney disease with stage 1 through stage 4 chronic kidney disease, or unspecified chronic kidney disease; I69.320 Aphasia following cerebral infarction; Z79.82 Long term (current) use of aspirin; Z79.899 Other long term (current) drug therapy; Z87.891 Personal history of nicotine dependence; Z90.49 Acquired absence of other specified parts of digestive tract
CPT/HCPCS: 36415; 70450; 71045; 71046; 80048; 80053; 81001; 82140; 82533; 82607; 82746; 82962; 83036; 83605; 83880; 84439; 84443; 84484; 85025; 85610; 85730; 87040; 87086; 96361; 96365; 99291; G0378; J1956; J2543; J3490

== ENCOUNTER 2019-06-05 07:54 | Inpatient (IN) | payer MEDICAID ==
[2019-06-05] VITALS (27 sets, daily range): BP systolic 51–210; BP diastolic 28–99
[~2019-06-05] VITALS: Ht 167.6 cm; Wt 100.0 kg
[~2019-06-05 07:54] MED LIST changes: +TAMS0.4C36 PO
[2019-06-05] MEDS ORDERED: DEXTROSE 50% SYRINGE 50 ML IV ONE ×2 (07:59→14:17)
[2019-06-05] MEDS ORDERED: DEXTROSE (50%) 50ML SYRG IV ONE ×3 (08:00→16:30)
[2019-06-05] MEDS ORDERED: ACCU-CHEK COMFORT CURVE STRIP VI ONE ×2 (08:00→08:15)
[2019-06-05] MEDS ORDERED: SODIUM CHLORIDE 0.9% 500 ML IVB ONE (08:09)
[2019-06-05] MEDS ORDERED: SODIUM CHLORIDE 0.9% 500 ML IV ONE (08:45)
[2019-06-05 08:54] LABS: Basophils # (auto) 0 uL; Basophils % (auto) 0.2 % (0.0-2.0); Eosinophils # (auto) 0 uL; Hematocrit 27.1 % (41.0-53.0); Hemoglobin 8.6 g/dL (13.5-17.5); Lymphocytes # (auto) 0.3 uL; Lymphocytes % (auto) 4.5 % (10.0-50.0); Mean Corpuscular Hemoglobin 31.6 pg (28.0-32.0); Mean Corpuscular Hgb Conc. 31.8 g/dL (32.0-36.0); Mean Corpuscular Volume 99.4 fL (80.0-100.0); Monocytes # (auto) 0.2 uL; Monocytes % (auto) 2.6 % (0.0-12.0); Neutrophils # (auto) 6.7 uL; Neutrophils % (auto) 92.7 % (37.0-80.0); Platelet Count (auto) 196 10^3/uL (140-450); Red Blood Cells 2.73 10^6/uL (4.5-5.90); Red Cell Distribution Width 18.1 % (11.8-14.3); White Blood Cell 7.2 10^3/uL (4.4-10.8)
[2019-06-05] MEDS ORDERED: SODIUM CHLORIDE 0.9% 1,000 ML IV ONE ×3 (09:00→11:45)
[2019-06-05 09:13] LABS: Albumin 2.5 g/dL (3.4-5.0); Anion Gap 14 (5-15); Blood Alcohol < 3.0 mg/dL (0-5); Blood Urea Nitrogen 78 mg/dL (7-18); Chloride 112 mmol/L (98-107); Glucose 240 mg/dL (74-106); Magnesium 2.4 mg/dL (1.6-2.6); Potassium 4.9 mmol/L (3.5-5.1); Sodium 134 mmol/L (136-145)
[2019-06-05 09:17] LABS: Alanine Aminotransferase 61 U/L (16-61); Alkaline Phosphatase 834 U/L (45-117); Aspartate Aminotransferase 48 U/L (15-37); Bilirubin, Total 1.7 mg/dL (0.2-1.0); GFR African American 18 mL/min; GFR Non-African American 15 mL/min; Lactic Acid w/Reflex 2.5 mmol/L (0.4-2.0)
[2019-06-05 09:30] LABS: BUN/Creatinine Ratio 18.5; INR 1.14 (0.9-1.15); Partial Thromboplastin Time 36.7 sec (23.64-32.05)
[2019-06-05 09:31] LABS: Carbon Dioxide 8 mmol/L (21-32)
[2019-06-05 11:02] LABS: Urine Bacteria MOD /hpf (None Seen); Urine Blood 2+ /uL (Negative); Urine Specific Gravity 1.013 (1.001-1.035); Urine WBC 805 /hpf (0 - 3); Urine WBC Clumps PRESENT /hpf (None Seen)
[2019-06-05 11:10] LABS: Alcohol, Urine < 3.0 mg/dL (0-5); Amphetamine Screen, Urine NEGATIVE (NEGATIVE); Barbiturate Scree,Urine NEGATIVE (NEGATIVE); Benzodiazephine Screen, Urine NEGATIVE (NEGATIVE); Cannabinoid Screen, Urine NEGATIVE (NEGATIVE); Cocaine Screen, Urine NEGATIVE (NEGATIVE); Opiate Scree,Urine NEGATIVE (NEGATIVE); Phencyclidine Screen, Urine NEGATIVE (NEGATIVE)
[2019-06-05] MEDS ORDERED: CEFTRIAXONE SODIUM 2 GM in D5W 5% 50 ML IV ONE (11:45)
[2019-06-05] MEDS ORDERED: cefTRIAXone 1GM/50ML D5W 50 ML IV ONE (11:48)
[2019-06-05] MEDS ORDERED: ACETAMINOPHEN 500 MG TAB PO PRN (12:45)
[2019-06-05] MEDS ORDERED: SODIUM BICARBONATE 8.4 % INJ 50ML VIAL IV ONE ×2 (12:45→20:00)
[2019-06-05] MEDS ORDERED: ONDANSETRON HCL 4 MG/2 ML VIAL IV PRN (12:45)
[2019-06-05] MEDS ORDERED: SODIUM BICARBONATE 50ML VIAL 50 ML in D5W 5% 1,000 ML IV SCH ×2 (12:45→16:30)
[2019-06-05] MEDS ORDERED: HYDROcodone-ACET 5/325MG TAB PO PRN (12:45)
[2019-06-05] MEDS ORDERED: MORPHINE SULF INJ 2 MG/ML SYRINGE 1ML IV PRN ×2 (12:45)
[2019-06-05] MEDS ORDERED: NITROGLYCERIN 0.4 MG SL TAB SL PRN (12:45)
[2019-06-05 13:37] LABS: Phosphorus 8.4 mg/dL (2.5-4.90); Uric Acid 5.5 mg/dL (3.5-7.2)
[2019-06-05] MEDS ORDERED: ALBUTEROL SULF 2.5 MG/0.5ML(0.5%) NEB SOLN NEB PRN (14:00)
[2019-06-05] MEDS ORDERED: metroNIDAZOLE 500MG/100ML 100 ML IV SCH (14:00)
[2019-06-05] MEDS ORDERED: IPRATROPIUM BROM 0.5 MG/2.5ML INH SOL NEB PRN (14:00)
[2019-06-05] MEDS: ACCU-CHEK COMFORT CURVE STRIP VI SCH ×5 (14:16→22:07)
[2019-06-05] MEDS ORDERED: DEXTROSE 10% 1,000 ML IV SCH (14:30)
[2019-06-05] MEDS: DEXTROSE 10% 1,000 ML IV SCH (16:30)
[2019-06-05] MEDS ORDERED: GLUCAGON HYDROCHLORIDE (RDNA) 1 MG VIAL IM ONE (16:30)
--- NOTE | 2019-06-05 16:35 | NUR ---
Admit to ICU DIV[facility] SRIVAST[facility] admitted to ICU via gurney on campus monitor, and portable 02. Patient transfered to bed, connected to unit monitoring and oxygen, and weighed by bedscale. Patient oriented to ALTAGRACIA MCKENNA RN primary RN, unit, room, bed, and unit policies regarding patient care and visiting hours. All questions and concerns addressed, patient verbalized understanding.
[2019-06-05] MEDS ORDERED: ROCURONIUM 10MG/ML 10ML VIAL IV ONE (17:40)
[2019-06-05] MEDS ORDERED: SUCCINYLCHOLINE CHLORIDE 20 MG/ML 10ML VIAL IV ONE (17:40)
[2019-06-05] MEDS ORDERED: PROPOFOL 100 ML IV ONE (17:51)
--- NOTE | 2019-06-05 18:00 | NUR ---
ICU pt. intubated after admit DR. SHANKS PRESENT SEEING PATIENT.Order received for intubation. Respiratory Therapist notified and at bedside. Patient/Family instructed on need for intubation and possible sedation while on ventilator. Patient intubated by DR. SHANKS with 8.0 ETT,24 at the liP.
--- NOTE | 2019-06-05 18:07 | NUR ---
PT INTUBATED AT BEDSIDE BY PROVIDER. PT INTUBATED WITH A 8.0 ETT SECURED AT 24 CM AT LIP LINE. + COLOR CHANGE ON CAPNOGRAPHER. MD IS CURRENTLY PLACING CENTRAL LINE. CXR AND ABG TO FOLLOW.
[2019-06-05 18:18] LABS: BUN/Creatinine Ratio 17.8; Calcium 7.9 mg/dL (8.5-10.1); Potassium 4.1 mmol/L (3.5-5.1)
[2019-06-05] MEDS: PROPOFOL 100 ML IV SCH (18:23)
[2019-06-05] MEDS: NOREPINEPHRINE 8 MG/250ML KIT 250 ML IV SCH (18:49)
--- NOTE | 2019-06-05 18:54 | NUR ---
PEEP INCREASED TO 8 ORDERED
[2019-06-05] MEDS: SODIUM BICARBONATE 50ML VIAL 150 ML in D5W 5% 1,000 ML IV SCH (20:12)
--- NOTE | 2019-06-05 21:00 | NUR ---
WOUND PHOTOS WOUND PHOTOS IN BOTH FOREARMS TAKEN, SKIN TEARS WITH ECCHYMOSES NOTED, CLEANSED WOUNDS AND COVERED WITH OPTIFOAMS.
[2019-06-05] MEDS: PIPERACILLIN-TAZOB 3.375GM 100 ML IV SCH (21:36)
[2019-06-05] MEDS: IPRATROPIUM BROM 0.5 MG/2.5ML INH SOL NEB SCH (21:55)
[2019-06-05] MEDS: ALBUTEROL SULF 2.5 MG/0.5ML(0.5%) NEB SOLN NEB SCH (21:55)
[2019-06-05] MEDS: fentaNYL Drip 2500mCg/250mlNS 250 ML IV SCH (22:12)
--- NOTE | 2019-06-05 22:26 | NUR ---
MAINTAINED ON SUPINE POSITION, MODERATE HIGH BACK REST, VS UNSTABLE, ON LEVOPHED DRIP
--- NOTE | 2019-06-05 22:30 | NUR ---
SBP 50'S-70'S, RAPID, SHALLOW RESPIRATIONS NOTED, R 20-24, HELD PROPOFOL DRIP, STARTED FENTANYL DRIP @ 25 MCG/MIN,
[2019-06-06] VITALS (97 sets, daily range): BP systolic 84–143; BP diastolic 31–69
[2019-06-06] MEDS: ACCU-CHEK COMFORT CURVE STRIP VI SCH ×8 (02:16→23:31)
[2019-06-06] MEDS: IPRATROPIUM BROM 0.5 MG/2.5ML INH SOL NEB SCH ×6 (02:24→22:03)
[2019-06-06] MEDS: ALBUTEROL SULF 2.5 MG/0.5ML(0.5%) NEB SOLN NEB SCH ×6 (02:24→22:03)
[2019-06-06] MEDS: SODIUM BICARBONATE 50ML VIAL 150 ML in D5W 5% 1,000 ML IV SCH ×3 (03:18→17:56)
[2019-06-06] MEDS: NOREPINEPHRINE 8 MG/250ML KIT 250 ML IV SCH (03:30)
--- NOTE | 2019-06-06 04:00 | NUR ---
INFLUENZA SWAB DONE.
[2019-06-06 04:30] LABS: Calcium 7.3 mg/dL (8.5-10.1)
[2019-06-06 04:34] LABS: BUN/Creatinine Ratio 17.3; Bilirubin, Total 1.4 mg/dL (0.2-1.0); Total Protein 5.9 g/dL (6.4-8.2)
[2019-06-06 04:37] LABS: White Blood Cell 14.3 10^3/uL (4.4-10.8)
[2019-06-06 04:39] LABS: Hematocrit 23.7 % (41.0-53.0); Hemoglobin 7.9 g/dL (13.5-17.5); Mean Corpuscular Hemoglobin 30.9 pg (28.0-32.0); Mean Corpuscular Hgb Conc. 33.5 g/dL (32.0-36.0); Mean Corpuscular Volume 92.2 fL (80.0-100.0); Platelet Count (auto) 191 10^3/uL (140-450); Red Blood Cells 2.57 10^6/uL (4.5-5.90); Red Cell Distribution Width 16.6 % (11.8-14.3)
[2019-06-06 05:04] LABS: Basophils % (manual) 0 (0.0-2.0); Blast Cells 0; Eosinophils % (manual) 0 (0-7); Myelocytes % 0; Promyelocytes % 0; Reactive Lymphocytes 0
--- NOTE | 2019-06-06 05:30 | NUR ---
Patient bathe/linen change Patient given complete bath. Skin integrity assessed for any changes. Linens and gown changed. Patient repositioned for comfort. Note: SBP dropped from 115-70, levophed drip increased from 16 mcg/min to 20 mcg/min
[2019-06-06] MEDS: PIPERACILLIN-TAZOB 3.375GM 100 ML IV SCH ×3 (05:42→21:43)
[2019-06-06 05:52] LABS: Band Neutrophils % (manual) 66; Lymphocytes % (manual) 3 (10.0-50.0); Metamyelocytes % 1; Monocytes % (manual) 3 (0-12)
--- NOTE | 2019-06-06 05:52 | NUR ---
NGT INSERTION SEVERAL ATTEMPTS TO INSERT OGT/NGT BY PRIMARY RN AND ANOTHER RN DONE BUT FAILED.
[2019-06-06] MEDS: DEXTROSE 10% 1,000 ML IV SCH ×2 (06:48→21:06)
[2019-06-06] MEDS ORDERED: cefTRIAXone 1GM/50ML D5W 50 ML IV SCH (09:00)
--- NOTE | 2019-06-06 09:40 | NUR ---
FAMILY AT BEDSIDE ALL QUESTIONS ANSWERED. UPDATED NEPHEW ON POC.
--- NOTE | 2019-06-06 09:45 | NUR ---
DR. CHRISTY HERE TO SEE PATIENT. SEE MD NOTES AND EMR FOR ANY NEW ORDERS.
[2019-06-06] MEDS ORDERED: SODIUM CHLORIDE 0.9% 500 ML IV ONE (10:00)
[2019-06-06] MEDS ORDERED: VANCOMYCIN PER PHARMACY 0 MG IV SCH (10:00)
--- NOTE | 2019-06-06 10:14 | NUR ---
CARDIOLOGY CONSULT CALLED. DR. MOSHER ON TODAY.
[2019-06-06] MEDS ORDERED: VANCOMYCIN 1GM/250ML 250 ML IV ONE (11:00)
[2019-06-06] MEDS: InsuLIN REG 1unit/0.01ml Soln (100units/ml) SC SCH ×3 (11:39→23:31)
--- NOTE | 2019-06-06 12:40 | NUR ---
WOUND CARE NOTE: Wound care in to see patient per wound care request regarding multiple wounds that are noted present on admission. Bedside nurse took photograph of patient's wounds upon admission for reference. Patient is 69 years old male with admitting diagnosis of Septic Shock. Patient with history of DM,CVA, high lipids, htn. Patient is resting in ICU bed in Rm. 112. He's intubated,sedated and mechanically ventilated. Patient appears to be in no pain using Torres Arce Faces Pain Scale. Patient's Jerman score is 13. Skin/wound assessment done with the assistance of another nurse, ROSEMARY Park. Patient's bilateral arm has scattered ecchymosis. Punctured, weeping blister, edema noted to his Lt forearm, upper arm area; staff placed care pad under arm to manage drainage. 0.8x1cm open partial thickness skin tear noted to patent's Lt lateral forearm/wrist area. HIs RT distal forearm also has 0.5x78cm skin tear over ecchymotic skin. Bilateral arm skin tears ahs minimal serosanguineous drainage, no odor noted. Cleansed patient's skin tears with wound cleanser,patted dry with gauze, applied Thera honey gel and covered with Opti foam gentle dressing. Patient's sacral,coccyx area has intact skin with dark red non-blanchable skin measuring 8x7cm. Alicia care given, applied Z Guard cream and overed with Opti foam sacral dressing. Patient tolerated well, repositioned for comfort. RECOMMENDATION: Q3Days/PRN dressing change to bilateral arm wounds;BID/PRN cleaning and application of Z Guard cream to sacrum per MD order, Dietary consult due to presence of wounds, frequent turning and repositioning schedule as condition permits, redistribute pressure points with pillows, elevate heels on pillows, continue monitoring by wound care while patient is hospitalized. Addendum: 06/06/19 at 1758 by Karol Smith RN Amended: Links added.
[2019-06-06] MEDS ORDERED: BUMETANIDE 2.5mg/10ml (0.25 mg/ml) INJ IV ONE (14:30)
[2019-06-06] MEDS ORDERED: DOPamine 1600MCG/ML D5W 250 ML IV ONE (16:05)
[2019-06-06] MEDS: DOPamine 1600MCG/ML D5W 250 ML IV SCH (16:15)
--- NOTE | 2019-06-06 18:10 | NUR ---
DR. MOSHER HERE TO SEE PATIENT. SEE MD NOTES AND EMR FOR ANY NEW ORDERS.
[2019-06-06] MEDS: PROPOFOL 100 ML IV SCH (18:23)
[2019-06-06] MEDS: fentaNYL Drip 2500mCg/250mlNS 250 ML IV SCH ×2 (18:23→22:15)
--- NOTE | 2019-06-06 19:30 | NUR ---
OPENING NOTE: INTUBATED AND SEDATED. OPENS EYES, TRACKS, BUT DOES NOT FOLLOW COMMANDS. SINUS TACH, HR 100s ON DOPAMINE GTT. SBP 90-110s MAP > 65. 8.0 ETT, 24 AT THE LIP. LS COARSE, RHONCHI THROUGHOUT. CLEAR TO CREAMY THIN-THICK ETT AND ORAL SECRETIONS. EVEN AND UNLABORED BREATHING ON CURRENT VENT SETTINGS, SpO2> 95%. ABD SOFT. HYPOACTIVE BS. UNKNOWN LBM. RIGHT UPPER QUADRANT BILIARY DRAIN, THICK DARK BILIOUS OUTPUT NOTED. HOPKINS PATENT AND INTACT, DRAINING CLOUDY, MUCOUS, SEDIMENT YELLOW URINE. SEE SKIN AND WOUND FLOWSHEET FOR ASSESSMENT. LEFT IJ TLC, CDI, PATENT WITH BLOOD RETURN. 18 G PIV TO LEFT FOREARM, CDI AND PATENT WITH BLOOD RETURN. PLACED SOFT MITTEN TO LEFT HAND FOR SAFETY. MAINTAINED PATIENT SAFETY: BED LOCKED AND IN THE LOWEST POSITION, BED ALARM ON, FREQUENT VISUAL CHECKS. WILL CONT CARE/
--- NOTE | 2019-06-06 21:00 | NUR ---
UNABLE TO COMPLETE SEDATION VACATION AT THIS TIME: PATIENT OPENS EYES AND TRACKS. WILL CONT CARE Addendum: 06/06/19 at 2341 by Belkys Myers RN RN Amended: Links added.
--- NOTE | 2019-06-06 22:30 | NUR ---
16 FR OGT PLACED ~ 58 CM AT THE LIP: VERIFIED BY ROSEMARY SEXTON
[2019-06-07] VITALS (104 sets, daily range): BP systolic 71–128; BP diastolic 43–70
[2019-06-07] MEDS: SODIUM BICARBONATE 50ML VIAL 150 ML in D5W 5% 1,000 ML IV SCH ×2 (00:05→09:30)
[2019-06-07] MEDS: DOPamine 1600MCG/ML D5W 250 ML IV SCH ×3 (00:05→21:42)
[2019-06-07] MEDS: PROPOFOL 100 ML IV SCH (00:33)
[2019-06-07] MEDS: ALBUTEROL SULF 2.5 MG/0.5ML(0.5%) NEB SOLN NEB SCH ×6 (02:17→22:47)
[2019-06-07] MEDS: IPRATROPIUM BROM 0.5 MG/2.5ML INH SOL NEB SCH ×6 (02:17→22:47)
--- NOTE | 2019-06-07 03:41 | NUR ---
WOUND CARE: LEFT FOREARM BLISTER: CHANGED CHUX. ELEVATED ARM BILIARY DRAIN: REMOVED PREVIOUS DRESSING, SMALL AMOUNT OF BILIOUS DRAINAGE. SUTURE INTACT. CLEANSED WITH IODINE SWABS; CHLORHEXIDINE UNAVAILABLE AT THE TIME. LET AIR DRY. COVERED WITH DRAIN SPONGE, 4X4, AND SECURED WITH MEDIPORE TAPE. SECURED TUBE TO ABDOMEN. SACRUM/COCCYX: REMOVED PREVIOUS DRESSING. NON-BLANCHABLE HYPERPIGMENTATION. PROMINENT COCCYX BONE. APPLIED THIN LAYER OF Z GUARD AND COVERED WITH GENTLE OPTIFOAM.
--- NOTE | 2019-06-07 03:41 | NUR ---
BED BATH WITH CHG WIPES, JOVAN CARE, HOPKINS CARE, ORAL CARE, AND FULL LINEN CHANGE COMPLETED
--- NOTE | 2019-06-07 03:45 | NUR ---
SCANT PASTY LIGHT BROWN BM: CLEANSED SURROUNDING SKIN. APPLIED THIN LAYER OF ZGUARD.
--- NOTE | 2019-06-07 03:53 | NUR ---
REMOVED PIV TO LEFT FOREARM: TIP INTACT, ACHIEVED HEMOSTASIS.
[2019-06-07] MEDS: InsuLIN REG 1unit/0.01ml Soln (100units/ml) SC SCH ×4 (06:00→23:37)
[2019-06-07] MEDS: ACCU-CHEK COMFORT CURVE STRIP VI SCH ×4 (06:05→23:37)
[2019-06-07] MEDS: PIPERACILLIN-TAZOB 3.375GM 100 ML IV SCH ×2 (06:06→14:00)
[2019-06-07 06:30] LABS: Eosinophils # (auto) 0.2 uL; Eosinophils % (auto) 1.1 % (0.0-7.0); Hemoglobin 7.4 g/dL (13.5-17.5); Monocytes # (auto) 0.3 uL; Neutrophils # (auto) 13.3 uL; Platelet Count (auto) 146 10^3/uL (140-450)
[2019-06-07 06:33] LABS: Basophils # (auto) 0 uL; Basophils % (auto) 0.2 % (0.0-2.0); Hematocrit 20.7 % (41.0-53.0); Lymphocytes # (auto) 0.9 uL; Lymphocytes % (auto) 6.2 % (10.0-50.0); Mean Corpuscular Hemoglobin 31.7 pg (28.0-32.0); Mean Corpuscular Hgb Conc. 35.5 g/dL (32.0-36.0); Mean Corpuscular Volume 89.3 fL (80.0-100.0); Monocytes % (auto) 1.8 % (0.0-12.0); Neutrophils % (auto) 90.7 % (37.0-80.0); Red Blood Cells 2.32 10^6/uL (4.5-5.90); Red Cell Distribution Width 15.9 % (11.8-14.3); White Blood Cell 14.6 10^3/uL (4.4-10.8)
--- NOTE | 2019-06-07 06:44 | NUR ---
CLOSING NOTE: REMAINS INTUBATED AND SEDATED. VSS. WILL ENDORSE CARE TO ONCOMING SHIFT.
[2019-06-07 06:56] LABS: Potassium 3.3 mmol/L (3.5-5.1)
[2019-06-07 07:01] LABS: Albumin 1.6 g/dL (3.4-5.0); BUN/Creatinine Ratio 17.1; Calcium 6.7 mg/dL (8.5-10.1)
[2019-06-07 07:03] LABS: Bilirubin, Total 1.8 mg/dL (0.2-1.0); Total Protein 5.5 g/dL (6.4-8.2)
--- NOTE | 2019-06-07 07:29 | NUR ---
REPORT AND CARE ENDORSED TO ROSEMARY MALDONADO
--- NOTE | 2019-06-07 08:00 | NUR ---
OPENING NOTE Received patient on mechanical ventilator sedated on Fentanyl at 125mcg and Diprivan 15mcg. Patient opens eyes spontaneously, does not track, does not follow simple commands, pupils reactive to light bilateral equal and positive gag reflex. Patient sinus rhythm in the 70's on bedside monitor, pulses palpable on upper and lower extremities with edema to the bilateral upper extremities. Abdomen soft, non tender, non distended, present bowel sounds with unknown bowel movement. Right upper quadrant biliary drain with thick dark bilious output observed. Will catheter to gravity.Left IJ (TLC): good blood return and flushes easily infusing Dopamine at 11mcg and D5 with 3 amps of HCO3 at 150. Optifoam to the sacral see skin assessment for more details. Call light within reach and bed at lowest position.Will continue to monitor patient closely.
--- NOTE | 2019-06-07 10:15 | NUR ---
FAMILY Patients family at bedside updated on patient condition with no new orders.
--- NOTE | 2019-06-07 11:20 | NUR ---
MD Dr. Diehl at bedside updated on patient condition with new orders, MD to input into system. Will implement new orders.
[2019-06-07] MEDS: DEXTROSE 10% 1,000 ML IV SCH (11:24)
[2019-06-07] MEDS ORDERED: POTASSIUM CHLORIDE 40 MEQ, LIDOCAINE 1% (LOCAL ANESTH.) 4 ML in SODIUM CHL 0.9% 100 ML IV ONE (11:30)
--- NOTE | 2019-06-07 11:45 | NUR ---
DOPAMINE GTT Dopamine GTT decreased to 10mcg/kg/min for a blood pressure of 117/67, will continue to titrate as tolerated by patient.
--- NOTE | 2019-06-07 12:00 | NUR ---
OG TUBE Checked and verified placement via air bolus: free water given 100ml per MD orders. Patient tolerated well. Will continue to monitor patient closely. Awaiting for tube feedings to arrive from dietary.
--- NOTE | 2019-06-07 13:08 | NUR ---
MD Dr. De Anda at bedside updated on patient condition with new orders, this MD to input into system. Will carry out orders.
--- NOTE | 2019-06-07 13:10 | NUR ---
RESPIRATORY RT Brook paged to notify of new orders per Dr. De Anda awaiting for RT to call back.
--- NOTE | 2019-06-07 13:33 | NUR ---
Respiratory note: CHANGES TO VENT SETTINGS PER DR ABARCA'S ORDERS. PT NOW ON AC 20, 400, +5, 30%. ABG TOMORROW MORNING. VENT ALARMS SET AND AUDIBLE. WILL CONTINUE TO MONITOR.
[2019-06-07] MEDS ORDERED: VANCOMYCIN 500 MG in D5W 5% 100 ML IV ONE (14:00)
[2019-06-07] MEDS: SODIUM CHLORIDE 0.9% 1,000 ML IV SCH (14:48)
--- NOTE | 2019-06-07 15:00 | NUR ---
DOPAMINE GTT Dopamine GTT decreased to 9mcg/kg/min for a blood pressure of 114/63, will continue to titrate as tolerated by patient.
[2019-06-07] MEDS ORDERED: Glucerna 1.2 Cal 1Liter BOTTLE GT SCH (18:00)
[2019-06-07] MEDS: FREE WATER GT SCH ×2 (18:00→23:36)
--- NOTE | 2019-06-07 18:00 | NUR ---
DOPAMINE GTT Dopamine GTT decreased to 8mcg/kg/min for a blood pressure of 125/64, will continue to titrate as tolerated by patient.
[2019-06-07] MEDS: CALCIUM ACETATE 667 MG CAP NG SCH (18:45)
[2019-06-07] MEDS: NOREPINEPHRINE 8 MG/250ML KIT 250 ML IV SCH (18:49)
[2019-06-07] MEDS ORDERED: DEXTROSE 50% SYRINGE 50 ML IV ONE (19:06)
--- NOTE | 2019-06-07 19:11 | NUR ---
BG 58 - 1 AMP D50 GIVEN
--- NOTE | 2019-06-07 19:12 | NUR ---
SBP IN 80s, MAP 56 - HR 69 - DECREASED FENTANYL GTT, INCREASED DOPAMINE GTT
--- NOTE | 2019-06-07 19:30 | NUR ---
OPENING NOTE: INTUBATED AND SEDATED. OPENS EYES, TRACKS, BUT DOES NOT FOLLOW COMMANDS. NSR, HR 70s ON DOPAMINE GTT. SBP 90-110s MAP > 65. 8.0 ETT, 24 AT THE LIP. LS CLEAR THROUGHOUT, DIMINISHED TO BASES. CLEAR TO CREAMY THIN-THICK ORAL SECRETIONS. EVEN AND UNLABORED BREATHING ON CURRENT VENT SETTINGS, SpO2> 95%. ABD SOFT. HYPOACTIVE BS. SMEAR BM YESTERDAY. OGT +AIR BOLUS, MINIMAL GASTRIC RESIDUAL, RUNNING TUBE FEEDING ORDERED. RIGHT UPPER QUADRANT BILIARY DRAIN, THICK DARK BILIOUS OUTPUT NOTED. HOPKINS PATENT AND INTACT, DRAINING CLEAR YELLOW URINE. SEE SKIN AND WOUND FLOWSHEET FOR ASSESSMENT. LEFT IJ TLC, CDI, PATENT WITH BLOOD RETURN. PLACED SOFT MITTEN TO LEFT HAND FOR SAFETY. MAINTAINED PATIENT SAFETY: BED LOCKED AND IN THE LOWEST POSITION, BED ALARM ON, FREQUENT VISUAL CHECKS. WILL CONT CARE/
--- NOTE | 2019-06-07 19:34 | NUR ---
BG RECHECK 139
--- NOTE | 2019-06-07 19:34 | NUR ---
GASTRIC RESIDUAL MINIMUM - INCREASED TF TO 30 ML/HR
--- NOTE | 2019-06-07 21:00 | NUR ---
SEDATION VACATION: TITRATING SEDATION TOLERATED Addendum: 06/07/19 at 7267 by Belkys Myers RN RN Amended: Links added.
--- NOTE | 2019-06-07 21:15 | NUR ---
BG CHECK 86
[2019-06-07] MEDS: PIPERACILLIN-TAZOB 2.25GM 50 ML IV SCH (21:42)
--- NOTE | 2019-06-07 21:43 | NUR ---
GASTRIC RESIDUAL REMAINS MINIMAL - WILL CONT CURRENT TF RATE
[2019-06-07 22:33] LABS: Protein, Urine 40.3 mg/dL (0.0-11.9)
[2019-06-07 22:38] LABS: Creatinine, Urine 11.2 mg/dL (30.0-125.0)
--- NOTE | 2019-06-07 23:36 | NUR ---
BG 68 - ~100 ML OF REDUCED FAT MILK GIVEN VIA OGT
[2019-06-08] VITALS (87 sets, daily range): BP systolic 80–152; BP diastolic 31–76
--- NOTE | 2019-06-08 00:05 | NUR ---
BG RECHECK 72
[2019-06-08] MEDS: SODIUM CHLORIDE 0.9% 1,000 ML IV SCH ×4 (00:06→22:45)
--- NOTE | 2019-06-08 00:27 | NUR ---
ATTEMPTING TO WEAN SEDATION BUT PATIENT BECOMES VERY SPASTIC, WHICH MAKES CARE DIFFICULT; ALSO NOTED WITH INCREASED FACIAL GRIMACING. WILL REASSESS SEDATION AND COMFORT
--- NOTE | 2019-06-08 00:55 | NUR ---
CENTRAL LINE DRESSING CHANGED: VIA STERILE TECHNIQUE. PATIENT TOLERATED WELL.
--- NOTE | 2019-06-08 01:17 | NUR ---
BG 74 - 120 ML ORANGE JUICE GIVEN
--- NOTE | 2019-06-08 01:18 | NUR ---
HR DROPPING INTO LOW 60s, HOWEVER SBP > 100, MAP > 80; TEMP 98.7F
[2019-06-08] MEDS: IPRATROPIUM BROM 0.5 MG/2.5ML INH SOL NEB SCH ×6 (02:26→22:24)
[2019-06-08] MEDS: ALBUTEROL SULF 2.5 MG/0.5ML(0.5%) NEB SOLN NEB SCH ×6 (02:27→22:24)
--- NOTE | 2019-06-08 04:21 | NUR ---
BED BATH WITH CHG WIPES, JOVAN CARE, HOPKINS CARE, ORAL CARE, AND PARTIAL LINEN CHANGE COMPLETED
--- NOTE | 2019-06-08 04:22 | NUR ---
WOUND CARE: LEFT FOREARM BLISTER: CHANGED CHUX. ELEVATED ARM BILIARY DRAIN: REMOVED PREVIOUS DRESSING, SMALL AMOUNT OF BILIOUS DRAINAGE. SUTURE INTACT. CLEANSED WITH CHLORHEXIDINE SWAB. LET AIR DRY. COVERED WITH DRAIN SPONGE, 4X4, AND SECURED WITH MEDIPORE TAPE. SECURED TUBE TO ABDOMEN. SACRUM/COCCYX: REMOVED PREVIOUS DRESSING. NON-BLANCHABLE HYPERPIGMENTATION. PROMINENT COCCYX BONE. APPLIED THIN LAYER OF Z GUARD AND COVERED WITH GENTLE OPTIFOAM. LEFT AND RIGHT FOREARM SKIN TEARS: REMOVED DRESSING. CLEANSED WITH SOAP AND WATER. APPLIED THERAHONEY GEL. COVERED WITH GENTLE OPTIFOAM
[2019-06-08 05:47] LABS: Basophils # (auto) 0.1 uL; Monocytes # (auto) 0.3 uL; Neutrophils # (auto) 12.6 uL; Red Blood Cells 2.12 10^6/uL (4.5-5.90)
[2019-06-08 05:51] LABS: Basophils % (auto) 0.5 % (0.0-2.0); Eosinophils # (auto) 0.2 uL; Eosinophils % (auto) 1.5 % (0.0-7.0); Lymphocytes # (auto) 0.9 uL; Lymphocytes % (auto) 6.2 % (10.0-50.0); Mean Corpuscular Hemoglobin 31.6 pg (28.0-32.0); Mean Corpuscular Hgb Conc. 35.2 g/dL (32.0-36.0); Mean Corpuscular Volume 89.7 fL (80.0-100.0); Neutrophils % (auto) 89.8 % (37.0-80.0); Platelet Count (auto) 98 10^3/uL (140-450); Red Cell Distribution Width 16.1 % (11.8-14.3)
[2019-06-08] MEDS: PIPERACILLIN-TAZOB 2.25GM 50 ML IV SCH ×2 (05:51→14:00)
[2019-06-08] MEDS: FREE WATER GT SCH ×4 (05:51→23:57)
[2019-06-08] MEDS: ACCU-CHEK COMFORT CURVE STRIP VI SCH ×4 (05:52→23:57)
[2019-06-08] MEDS: InsuLIN REG 1unit/0.01ml Soln (100units/ml) SC SCH ×4 (05:52→23:57)
[2019-06-08] MEDS: PROPOFOL 100 ML IV SCH (05:56)
--- NOTE | 2019-06-08 06:06 | NUR ---
CLOSING NOTE: REMAINS INTUBATED AND SEDATED. ABLE TO TITRATE DOWN DOPAMINE GTT. PATIENT OPENS EYES AND TRACKS. VSS OTHERWISE. WILL ENDORSE CARE TO DAY SHIFT
[2019-06-08 06:09] LABS: Albumin 1.4 g/dL (3.4-5.0); BUN/Creatinine Ratio 16.3; Calcium 6.8 mg/dL (8.5-10.1); Potassium 3.6 mmol/L (3.5-5.1)
[2019-06-08 06:12] LABS: Total Protein 5.1 g/dL (6.4-8.2)
[2019-06-08 06:31] LABS: Hemoglobin 6.7 g/dL (13.5-17.5)
--- NOTE | 2019-06-08 07:30 | NUR ---
REPORT AND CARE ENDORSED TO ROSEMARY MALDONADO
[2019-06-08] MEDS: fentaNYL Drip 2500mCg/250mlNS 250 ML IV SCH (07:45)
--- NOTE | 2019-06-08 07:45 | NUR ---
DOPAMINE GTT Dopamine GTT increased to 8 mcg for a blood pressure 82/46 and re-arranged blood pressure cuff to another limb, will continue to titrate as tolerated by patient.
--- NOTE | 2019-06-08 08:00 | NUR ---
OPENING NOTE Received patient on mechanical ventilator sedated on Fentanyl at 125mcg and Diprivan 10mcg. Patient opens eyes spontaneously, does track, does not follow simple commands, pupils reactive to light bilateral equal and positive gag reflex. Patient sinus rhythm in the 60's on bedside monitor, pulses palpable on upper and lower extremities with edema to the bilateral upper extremities. Abdomen soft, non tender, non distended, present bowel sounds with unknown bowel movement. Right upper quadrant biliary drain with thick dark bilious output observed. Will catheter to gravity.Left IJ (TLC): good blood return and flushes easily infusing Dopamine at 8mcg and normal saline at 125. Optifoam to the sacral see skin assessment for more details. Call light within reach and bed at lowest position.Will continue to monitor patient closely.
[2019-06-08] MEDS: CALCIUM ACETATE 667 MG CAP NG SCH ×3 (08:30→17:47)
--- NOTE | 2019-06-08 08:45 | NUR ---
DOPAMINE GTT Dopamine GTT decreased to 7 mcg for a blood pressure 151/63 will continue to titrate as tolerated by patient.
--- NOTE | 2019-06-08 09:15 | NUR ---
DOPAMINE GTT Dopamine GTT decreased to 6 mcg for a blood pressure 142/60, will continue to titrate as tolerated by patient.
[2019-06-08] MEDS ORDERED: PIPERACILLIN-TAZOB 2.25GM 50 ML IV SCH (09:45)
--- NOTE | 2019-06-08 10:15 | NUR ---
DOPAMINE GTT Dopamine GTT decreased to 5 mcg for a blood pressure 136/60, will continue to titrate as tolerated by patient.
[2019-06-08] MEDS ORDERED: VANCOMYCIN 500 MG in D5W 5% 100 ML IV ONE (11:00)
--- NOTE | 2019-06-08 11:15 | NUR ---
DOPAMINE GTT Dopamine GTT decreased to 4 mcg for a blood pressure 137/54, will continue to titrate as tolerated by patient.
--- NOTE | 2019-06-08 12:00 | NUR ---
NUTRITION OG tube checked and verified via air bolus, zero residuals aspirated and tube feedings continue at 30m/hr.
--- NOTE | 2019-06-08 12:30 | NUR ---
DOPAMINE GTT Dopamine GTT decreased to 3 mcg for a blood pressure 136/63, will continue to titrate as tolerated by patient.
--- NOTE | 2019-06-08 12:40 | NUR ---
BLOOD TRANSFUSION Blood transfusion has started.
--- NOTE | 2019-06-08 13:15 | NUR ---
DOPAMINE GTT Dopamine GTT decreased to 2 mcg for a blood pressure 143/59, will continue to titrate as tolerated by patient.
--- NOTE | 2019-06-08 14:06 | NUR ---
Nutrition Assessment Notes Est energy needs: 8530-3203 kcals (25-30 kcals/kgBW) Est protein needs: 77-128 gm/day (1.2-2.0 kg BW) Will continue to monitor and reassess prn Addendum: 06/08/19 at [address] Amended: Links added. Addendum: 06/08/19 at [address] Pt was sedated, intubated, unable to provide consult.
--- NOTE | 2019-06-08 14:50 | NUR ---
MD Dr. De Anda at bedside updated on patient condition with new orders, this RN to input into system. RT aware of new vent orders. Will continue to monitor patient closely.
--- NOTE | 2019-06-08 15:10 | NUR ---
BLOOD TRANSFUSION Blood transfusion has finished.
--- NOTE | 2019-06-08 17:08 | NUR ---
assessment Patient is a 69 year old male who is on a vent. Prior to admission patient lived home with family and functioned with assistance. Per Emeli patients nephew patient has a fww, cane, and bedside commode for home use. Per emeli he and his son Tom are patients caregivers. Patients PCP is Dr Woo. I informed Emeli that patients post discharge needs to be determined after extubation and prior to discharge. Emeli verbalized understanding. Addendum: 06/08/19 at 1711 by Radha DE LEÓN Amended: Links added.
--- NOTE | 2019-06-08 17:15 | NUR ---
Discharge planning per SS consult, patient has orders for home safety eval. Referral faxed to [facility] [phone]. Placed a follow up call, spoke with Ivone, and was advised that they will accept patient onto services upon discharge. Obtained auth from ANUSHKA Murguia. [id number].
[2019-06-08] MEDS: NOREPINEPHRINE 8 MG/250ML KIT 250 ML IV SCH (18:49)
--- NOTE | 2019-06-08 18:50 | NUR ---
RT NOTE RECEIVED PT INTUBATED AND ON VENT V5 ON STATED SETTINGS IN THE ICU. VENT IS PLUGGED TO RED OUTLET. ALARMS ARE ON AND AUDIBLE AT NURSING STATION. AMBU BAG AT BEDSIDE AND CONNECTED TO O2 SOURCE. 8.0 ETT IS SECURED WITH ANCHORFAST AT 24 CM TO THE ORAL CENTER. BILATERAL BS ARE COARSE. PT WAS SUCTIONED FOR MODERATE CREAMY RETURN FROM ETT AND CLEAR ORALLY. HHN GIVEN INLINE WITH 2.5 MG ALBUTEROL AND 0.5 MG ATROVENT. CONT ORDERED. POX 97% Addendum: 06/08/19 at 1933 by Polina Urban RT Amended: Links added.
--- NOTE | 2019-06-08 19:45 | NUR ---
OPENING NOTE: INTUBATED AND SEDATED. OPENS EYES, TRACKS, BUT DOES NOT FOLLOW COMMANDS. NSR, HR 60-70s OFF OF DOPAMINE GTT. SBP 90s MAP 50-60s. 8.0 ETT, 24 AT THE LIP. LS CLEAR THROUGHOUT, DIMINISHED TO BASES. CLEAR TO CREAMY THIN-THICK ORAL SECRETIONS. EVEN AND UNLABORED BREATHING ON CURRENT VENT SETTINGS, SpO2> 95%. ABD SOFT. HYPOACTIVE BS. SMALL BM TODAY. OGT +AIR BOLUS, MINIMAL GASTRIC RESIDUAL, RUNNING TUBE FEEDING ORDERED. RIGHT UPPER QUADRANT BILIARY DRAIN, THICK DARK BILIOUS OUTPUT NOTED. HOPKINS PATENT AND INTACT, DRAINING CLEAR YELLOW URINE. SEE SKIN AND WOUND FLOWSHEET FOR ASSESSMENT. LEFT IJ TLC, CDI, PATENT WITH BLOOD RETURN. PLACED SOFT MITTEN TO LEFT HAND FOR SAFETY. MAINTAINED PATIENT SAFETY: BED LOCKED AND IN THE LOWEST POSITION, BED ALARM ON, FREQUENT VISUAL CHECKS. WILL CONT CARE NO FAMILY PRESENT AT THIS TIME
--- NOTE | 2019-06-08 19:57 | NUR ---
RT NOTE ROUTINE VENT CHECK DONE. PT INTUBATED AND ON VENT V5 ON STATED SETTINGS IN THE ICU. VENT IS PLUGGED TO RED OUTLET. ALARMS ARE ON AND AUDIBLE AT NURSING STATION. AMBU BAG AT BEDSIDE AND CONNECTED TO O2 SOURCE. 8.0 ETT IS SECURED WITH ANCHORFAST AT 24 CM TO THE ORAL CENTER. CONT ORDERED. POX 97% Addendum: 06/08/19 at 2032 by Polina Urban RT Amended: Links added.
--- NOTE | 2019-06-08 20:39 | NUR ---
TRANSFUSION EARLIER IN THE DAY - WILL RECHECK H&H
[2019-06-08 20:50] LABS: Hemoglobin 7.9 g/dL (13.5-17.5)
[2019-06-08 20:52] LABS: Hematocrit 22.6 % (41.0-53.0)
--- NOTE | 2019-06-08 21:18 | NUR ---
NOTED WITH INTERMITTENT SBP IN 80s, MAP HIGH 50s - TITRATING DOWN SEDATION TOLERATED
--- NOTE | 2019-06-08 21:19 | NUR ---
SEDATION VACATION: CURRENTLY OPENS EYES SPONTANEOUSLY AND TRACKS, MOVES LEFT UPPER EXTREMITY UP TO ETT. WILL TITRATE SEDATION DOWN TOLERATED. WILL CONT CARE. Addendum: 06/08/19 at 2120 by Belkys Myers RN RN Amended: Links added.
--- NOTE | 2019-06-08 22:19 | NUR ---
RT NOTE ROUTINE VENT CHECK DONE. PT INTUBATED AND ON VENT V5 ON STATED SETTINGS IN THE ICU. VENT IS PLUGGED TO RED OUTLET. ALARMS ARE ON AND AUDIBLE AT NURSING STATION. AMBU BAG AT BEDSIDE AND CONNECTED TO O2 SOURCE. 8.0 ETT IS SECURED WITH ANCHORFAST AT 24 CM TO THE ORAL LEFT. HHN GIVEN INLINE WITH 2.5 MG ALBUTEROL AND 0.5 MG ATROVENT WITHOUT ADVERSE REACTION NOTED. PT WAS SUCTIONED FOR SCANT RETURN. CONT ORDERED. POX 97% Addendum: 06/08/19 at 2301 by Polina Urban RT Amended: Links added.
--- NOTE | 2019-06-08 23:50 | NUR ---
GASTRIC RESIDUAL < 10 ML - 100 ML FREE WATER FLUSH GIVEN: HOB > 30 DEGREES
--- NOTE | 2019-06-08 23:55 | NUR ---
BG 67 - 120 ML ORANGE JUICE GIVEN VIA OGT
[2019-06-09] VITALS (86 sets, daily range): BP systolic 93–154; BP diastolic 54–89
--- NOTE | 2019-06-09 00:29 | NUR ---
BG RECHECK 97
--- NOTE | 2019-06-09 00:33 | NUR ---
RT NOTE ROUTINE VENT CHECK DONE. PT INTUBATED AND ON VENT V5 ON STATED SETTINGS IN THE ICU. VENT IS PLUGGED TO RED OUTLET. ALARMS ARE ON AND AUDIBLE AT NURSING STATION. AMBU BAG AT BEDSIDE AND CONNECTED TO O2 SOURCE. 8.0 ETT IS SECURED WITH ANCHORFAST AT 24 CM TO THE ORAL LEFT.PT WAS SUCTIONED FOR SMALL, THICK RETURN. CONT ORDERED. POX 99% Addendum: 06/09/19 at 0059 by Polina Urban RT Amended: Links added.
[2019-06-09] MEDS: PIPERACILLIN-TAZOB 2.25GM 50 ML IV SCH ×3 (01:36→19:56)
[2019-06-09] MEDS: fentaNYL Drip 2500mCg/250mlNS 250 ML IV SCH (01:59)
--- NOTE | 2019-06-09 02:00 | NUR ---
MODERATE PASTY LENNY COLORED STOOL
--- NOTE | 2019-06-09 02:00 | NUR ---
BED BATH WITH CHG WIPES, JOVAN CARE, HOPKINS CARE, ORAL CARE, AND PARTIAL LINEN CHANGE COMPLETED
--- NOTE | 2019-06-09 02:00 | NUR ---
WOUND CARE: LEFT FOREARM BLISTER: CHANGED CHUX. ELEVATED ARM BILIARY DRAIN: REMOVED PREVIOUS DRESSING, SMALL AMOUNT OF BILIOUS DRAINAGE. SUTURE INTACT. CLEANSED CHLORHEXIDINE SWAB. LET AIR DRY. COVERED WITH DRAIN SPONGE, 4X4, AND SECURED WITH MEDIPORE TAPE. SECURED TUBE TO ABDOMEN. SACRUM/COCCYX: REMOVED PREVIOUS DRESSING. NON-BLANCHABLE HYPERPIGMENTATION. PROMINENT COCCYX BONE. APPLIED THIN LAYER OF Z GUARD AND COVERED WITH GENTLE OPTIFOAM.
--- NOTE | 2019-06-09 02:13 | NUR ---
RT NOTE ROUTINE VENT CHECK DONE. PT INTUBATED AND ON VENT V5 ON STATED SETTINGS IN THE ICU. VENT IS PLUGGED TO RED OUTLET. ALARMS ARE ON AND AUDIBLE AT NURSING STATION. AMBU BAG AT BEDSIDE AND CONNECTED TO O2 SOURCE. 8.0 ETT IS SECURED WITH ANCHORFAST AT 24 CM TO THE ORAL LEFT.BS ARE CTA. HHN GIVEN INLINE WITH 2.5 MG ALBUTEROL AND 0.5 MG ATROVENT WITHOUT ADVERSE REACTION NOTED. RN BORIS AT BEDSIDE. HME, T-PIECE AND INLINE SUCTION CHANGED WITHOUT INCIDENT. CONT ORDERED. POX 98% Addendum: 06/09/19 at 0309 by Polina Urban RT Amended: Links added.
[2019-06-09] MEDS: IPRATROPIUM BROM 0.5 MG/2.5ML INH SOL NEB SCH ×6 (02:17→22:01)
[2019-06-09] MEDS: ALBUTEROL SULF 2.5 MG/0.5ML(0.5%) NEB SOLN NEB SCH ×6 (02:17→22:01)
[2019-06-09] MEDS: PROPOFOL 100 ML IV SCH (02:27)
[2019-06-09] MEDS: SODIUM CHLORIDE 0.9% 1,000 ML IV SCH ×2 (02:45→14:45)
--- NOTE | 2019-06-09 03:30 | NUR ---
DR. NARAYANAN Addendum: 06/09/19 at 0331 by Belkys Myers RN RN DR NARAYANAN CALLED [employer] FOR INFO ON PATIENT. [employer] PROVIDED INFORMATION ABLE. PER DR. NARAYANAN, SHE WILL BE IN TO SEE PATIENT
--- NOTE | 2019-06-09 04:06 | NUR ---
DR. NARAYANAN AT BEDSIDE
--- NOTE | 2019-06-09 04:10 | NUR ---
RT NOTE ROUTINE VENT CHECK DONE. PT INTUBATED AND ON VENT V5 ON STATED SETTINGS IN THE ICU. VENT IS PLUGGED TO RED OUTLET. ALARMS ARE ON AND AUDIBLE AT NURSING STATION. AMBU BAG AT BEDSIDE AND CONNECTED TO O2 SOURCE. 8.0 ETT IS SECURED WITH ANCHORFAST AT 24 CM TO THE ORAL LEFT.NO CHANGES MADE. CONT ORDERED. POX 99% Addendum: 06/09/19 at 0424 by Polina Urban RT Amended: Links added.
--- NOTE | 2019-06-09 05:47 | NUR ---
BG 69 - FREE WATER FLUSH WITH 2 PACKETS OF SUGAR GIVEN
[2019-06-09] MEDS: ACCU-CHEK COMFORT CURVE STRIP VI SCH ×3 (05:48→17:39)
[2019-06-09] MEDS: InsuLIN REG 1unit/0.01ml Soln (100units/ml) SC SCH ×3 (05:48→17:38)
[2019-06-09 05:49] LABS: Basophils # (auto) 0.1 uL; Eosinophils # (auto) 0.2 uL; Eosinophils % (auto) 1.7 % (0.0-7.0); Hemoglobin 8.1 g/dL (13.5-17.5); Lymphocytes # (auto) 0.5 uL; Monocytes # (auto) 0.4 uL; Platelet Count (auto) 81 10^3/uL (140-450); Red Blood Cells 2.55 10^6/uL (4.5-5.90)
[2019-06-09] MEDS: FREE WATER GT SCH ×3 (05:49→17:36)
[2019-06-09 06:00] LABS: Basophils % (auto) 0.5 % (0.0-2.0); Lymphocytes % (auto) 4.4 % (10.0-50.0); Mean Corpuscular Hemoglobin 31.8 pg (28.0-32.0); Mean Corpuscular Hgb Conc. 35.3 g/dL (32.0-36.0); Mean Corpuscular Volume 90.3 fL (80.0-100.0); Monocytes % (auto) 3.7 % (0.0-12.0); Neutrophils # (auto) 10.7 uL; Neutrophils % (auto) 89.7 % (37.0-80.0); Red Cell Distribution Width 15.1 % (11.8-14.3)
[2019-06-09 06:10] LABS: INR 1.12 (0.9-1.15); Partial Thromboplastin Time 42.4 sec (23.64-32.05)
--- NOTE | 2019-06-09 06:15 | NUR ---
CLOSING NOTE: REMAINS INTUBATED AND LIGHTLY SEDATED. OPENS EYES, TRACKS. VSS. WILL ENDORSE CARE TO ONCOMING SHIFT
--- NOTE | 2019-06-09 06:15 | NUR ---
BG RECHECK 81
[2019-06-09 06:16] LABS: Albumin 1.4 g/dL (3.4-5.0); Calcium 7.3 mg/dL (8.5-10.1); Potassium 3.7 mmol/L (3.5-5.1)
[2019-06-09 06:19] LABS: BUN/Creatinine Ratio 15.6
[2019-06-09 06:21] LABS: Bilirubin, Total 2.5 mg/dL (0.2-1.0); Total Protein 5.2 g/dL (6.4-8.2)
--- NOTE | 2019-06-09 07:11 | NUR ---
REPORT AND CARE ENDORSED TO ROSEMARY MALDONADO
--- NOTE | 2019-06-09 08:00 | NUR ---
OPENING NOTE Received patient on mechanical ventilator sedated on Fentanyl at 125mcg and Diprivan 5mcg. Patient opens eyes spontaneously, does track, does not follow simple commands, pupils reactive to light bilateral equal,positive gag reflex and moves left upper arm with purpose (mitten on for safety). OG tube checked and verified via air bolus and tube feedings turned off for possible CPAP trial. Patient sinus rhythm in the 80's on bedside monitor, pulses palpable on upper and lower extremities with edema/bruising to the bilateral upper extremities. Abdomen soft, non tender, non distended, present bowel sounds with last bowel movement this AM during assessment large valentin formed stool. Right upper quadrant biliary drain with thick dark bilious output observed. Will catheter to gravity.Left IJ (TLC): good blood return and flushes easily infusing normal saline at 125. Optifoam to the sacral see skin assessment for more details. Call light within reach and bed at lowest position.Will continue to monitor patient closely.
[2019-06-09] MEDS: CALCIUM ACETATE 667 MG CAP NG SCH ×3 (08:54→17:36)
--- NOTE | 2019-06-09 09:00 | NUR ---
MD Sheehan at bedside updated on patient condition with no new orders. Will continue monitor patient closely.
--- NOTE | 2019-06-09 09:30 | NUR ---
MD Dr. Diehl at bedside updated on patient condition with no new orders. Will continue to monitor patient closely.
[2019-06-09] MEDS: FERROUS SULFATE 300 MG/5 ML ORAL LIQ GT SCH ×2 (10:08→21:47)
[2019-06-09] MEDS: PANTOPRAZOLE 40 MG/10 ML VIAL INJ IV SCH (10:08)
--- NOTE | 2019-06-09 10:25 | NUR ---
FAMILY Patients family at bedside updated on patient condition and questions answered. Will continue to monitor patient closely.
--- NOTE | 2019-06-09 12:00 | NUR ---
BLOOD GLUCOSE Blood glucose 57 given 1 amp of D50, will recheck.
[2019-06-09] MEDS ORDERED: DEXTROSE 50% SYRINGE 50 ML IV ONE (12:04)
--- NOTE | 2019-06-09 12:15 | NUR ---
MD Dr. De Anda at bedside updated on patient condition with new orders received, this RN to input into system. RT Nicolette to be notified of new orders. Will continue to monitor patient closely.
--- NOTE | 2019-06-09 12:30 | NUR ---
BLOOD GLUCOSE RECHECK Blood glucose recheck at 147.
--- NOTE | 2019-06-09 12:30 | NUR ---
Respiratory note: VENT CHANGES MADE PER ORDERS. SIMV 8, 400, +8, 30%. ABG IN ONE HOUR.
--- NOTE | 2019-06-09 12:30 | NUR ---
SEDATION Turned off sedation for CPAP trail.
--- NOTE | 2019-06-09 14:04 | NUR ---
RESPIRATORY RT Nicolette at bedside and changed vent setting to CPAP mode. Will continue to monitor patient closely.
--- NOTE | 2019-06-09 14:25 | NUR ---
SEIZURE ACTIVITY Patient appeared to have a seizure. Dr. Diehl called for new orders.
--- NOTE | 2019-06-09 14:30 | NUR ---
MD Dr. Diehl called back and aware of seizure activity, received new orders this RN to input into system. MD aware Seizure activity occurred during CPAP trail with orders to continue CPAP.
--- NOTE | 2019-06-09 14:38 | NUR ---
MD Dr. De Anda paged and spoke to him regarding patient had seizure activity. states " place patient on previous vent settings." RT Nicolette aware.
[2019-06-09] MEDS ORDERED: PHENYTOIN IV DILANTIN 1,000 MG in SODIUM CHL 0.9% 250 ML IV ONE (14:45)
[2019-06-09] MEDS ORDERED: LORazepam 2MG/ML-1ML VIAL IV PRN (14:45)
--- NOTE | 2019-06-09 14:45 | NUR ---
Respiratory note: PT PLACED BACK ON SIMV PREVIOUS SETTINGS. PT HAD AN EPISODE OF A SEIZURE. RN NOTIFY OF CHANGE.
--- NOTE | 2019-06-09 14:45 | NUR ---
RESPIRATORY RT Nicolette placed patient back on previous vent settings after taking to Dr. De Anda regarding seizure activity.
[2019-06-09] MEDS: DOPamine 1600MCG/ML D5W 250 ML IV SCH (16:15)
--- NOTE | 2019-06-09 16:15 | NUR ---
FAMILY Family has left.
--- NOTE | 2019-06-09 17:00 | NUR ---
NUTRITION OG tube checked and verified via air bolus and started tube feedings at 30ml/hr. Will continue to monitor residuals.
--- NOTE | 2019-06-09 18:14 | NUR ---
Respiratory note: Received pt on vent v5, vent connected to red outlet and o2 source. alarms are set and audible. Ambu bag and mask, BS are course t/o, sxd via ETT for large amount of thick yellow. med neb tx given inline without adverse reaction noted. HME changed at this time. Rt name and pager assignment written on pts room board. will continue to monitor.
[2019-06-09] MEDS: NOREPINEPHRINE 8 MG/250ML KIT 250 ML IV SCH (18:49)
--- NOTE | 2019-06-09 20:33 | NUR ---
Respiratory note: at bedside for routine vent check. BS are fine course sxd moderate thick yellow/negro. Will continue to monitor q2h.
--- NOTE | 2019-06-09 22:01 | NUR ---
Respiratory note: At bedside for routine vent check. BS are fine course sxd moderate thick yellow/negro. Med neb tx given inline without adverse reaction noted. Will continue to monitor q2h.
--- NOTE | 2019-06-09 23:58 | NUR ---
Elimination Large amount of soft brown stools noted, cleansed and kept dry and comfortable, z-guard applied to sacral area and covered with optifoam, new linen changed, skin reassessed for any changes, small skin tear noted, will take wound photo for reference. Repositioned for comfort.
[2019-06-10] VITALS (57 sets, daily range): BP systolic 112–142; BP diastolic 51–77
--- NOTE | 2019-06-10 | NUR ---
Free water 100 ml given/OGT, no residual noted.
--- NOTE | 2019-06-10 00:10 | NUR ---
Respiratory note: At bedside for routine vent check. sxd via ett for thick yellow/ negro secretions, hme changed again at this time. Will continue to monitor q2h.
[2019-06-10] MEDS: ACCU-CHEK COMFORT CURVE STRIP VI SCH ×3 (00:12→17:16)
[2019-06-10] MEDS: FREE WATER GT SCH ×3 (00:12→17:44)
[2019-06-10] MEDS: InsuLIN REG 1unit/0.01ml Soln (100units/ml) SC SCH ×3 (00:25→17:16)
[2019-06-10] MEDS: SODIUM CHLORIDE 0.9% 1,000 ML IV SCH ×3 (00:55→20:41)
--- NOTE | 2019-06-10 01:00 | NUR ---
Held tube feeding for CPAP trial
[2019-06-10] MEDS: ALBUTEROL SULF 2.5 MG/0.5ML(0.5%) NEB SOLN NEB SCH ×6 (02:32→22:40)
[2019-06-10] MEDS: IPRATROPIUM BROM 0.5 MG/2.5ML INH SOL NEB SCH ×6 (02:32→22:40)
--- NOTE | 2019-06-10 02:32 | NUR ---
Respiratory note: At bedside for routine vent check. Sxd via ett for thick yellow/ negro secretions, med neb tx given inline with out adverse reaction noted. Will continue to monitor q2h.
--- NOTE | 2019-06-10 04:02 | NUR ---
Respiratory note: END OF SHIFT VENT CHECK. SPOKE TO PATIENT IN BHUTAN[place] AND IN [place], PT MORE AWAKE BUT NOT FOLLOWING COMMANDS AT THIS TIME. SXD FOR LARGE AMOUNT OF THICK YELLOW SECRETIONS. WILL HAVE DAY SHIFT RT CONTINUE POC.
[2019-06-10 04:22] LABS: Basophils # (auto) 0 uL; Eosinophils # (auto) 0.1 uL; Hemoglobin 7.7 g/dL (13.5-17.5); Lymphocytes # (auto) 0.5 uL; Lymphocytes % (auto) 5.5 % (10.0-50.0)
[2019-06-10] MEDS: PIPERACILLIN-TAZOB 2.25GM 50 ML IV SCH ×3 (04:28→20:06)
[2019-06-10 04:29] LABS: Basophils % (auto) 0.3 % (0.0-2.0); Eosinophils % (auto) 1.2 % (0.0-7.0); Mean Corpuscular Hemoglobin 32.4 pg (28.0-32.0); Mean Corpuscular Hgb Conc. 35.2 g/dL (32.0-36.0); Mean Corpuscular Volume 92.2 fL (80.0-100.0); Monocytes # (auto) 0.4 uL; Monocytes % (auto) 5.3 % (0.0-12.0); Neutrophils # (auto) 7.3 uL; Neutrophils % (auto) 87.7 % (37.0-80.0); Platelet Count (auto) 68 10^3/uL (140-450); Red Blood Cells 2.39 10^6/uL (4.5-5.90); Red Cell Distribution Width 15.1 % (11.8-14.3); White Blood Cell 8.3 10^3/uL (4.4-10.8)
[2019-06-10 04:41] LABS: Albumin 1.3 g/dL (3.4-5.0); BUN/Creatinine Ratio 14.7; Calcium 7.5 mg/dL (8.5-10.1); Potassium 3.6 mmol/L (3.5-5.1)
[2019-06-10 04:50] LABS: Bilirubin, Total 2.5 mg/dL (0.2-1.0)
--- NOTE | 2019-06-10 04:50 | NUR ---
ELIMINATION LARGE AMOUNT OF LENNY-COLORED SOFT STOOLS NOTED, CLEANSED AND KEPT DRY AND COMFORTABLE, SACRAL OPTIFOAM CHANGED. REPOSITIONED FOR COMFORT
--- NOTE | 2019-06-10 05:00 | NUR ---
WOUND PHOTO SMALL SKIN TEAR IN THE SACRUM NOTED, WOUND PHOTO TAKEN
--- NOTE | 2019-06-10 06:30 | NUR ---
ACCUCHECK 0630 =52, 54, d50-50 CC GIVEN PER PROTOCOL RECHECKED @ 0700 = 132
[2019-06-10] MEDS ORDERED: DEXTROSE 50% SYRINGE 50 ML IV ONE (06:32)
[2019-06-10] MEDS: CALCIUM ACETATE 667 MG CAP NG SCH ×3 (08:00→17:44)
--- NOTE | 2019-06-10 08:45 | NUR ---
Family updated on pt status Family of DIVINE SRIVASTAVA updated on patient's status and condition. All questions and concerns addressed. verbalized understanding.
[2019-06-10] MEDS ORDERED: VANCOMYCIN 500 MG in D5W 5% 100 ML IV ONE (11:00)
--- NOTE | 2019-06-10 11:00 | NUR ---
Provider/Hospitalist at bedside Dr. Anna Duvall made rounds and saw pt. and made some orders.
[2019-06-10] MEDS: PANTOPRAZOLE 40 MG/10 ML VIAL INJ IV SCH (11:41)
[2019-06-10] MEDS: FERROUS SULFATE 300 MG/5 ML ORAL LIQ GT SCH ×2 (11:41→22:29)
--- NOTE | 2019-06-10 13:30 | NUR ---
RESPIRATORY STATUS pt. has been on CPAP mode as per MD and tolerating well, will continue to monitor pt.
--- NOTE | 2019-06-10 15:03 | NUR ---
Nutrition Follow up Notes Pt wt is 71.1 kg today Pt is intubated, and TPN halted for a CPAP trial today per RN. Will follow up in 2-3 days. LABS:BUN 61 H, Cr 4.14 H, Gluc 59 L, Alb 1.3 L, Bili 2.5 H BS:13 high risk, sacrum Pressure Ulcer BM: Incontinent 06/09 per RN doc Est energy needs: 9177-6623 kcals (25-30 kcals/kgBW) Est protein needs: 77-128 gm/day (1.2-2.0 kg BW) PES: Altered nutrition related lab values r/t current and chronic medical condition aeb hypochloremia, elev RFTs and Bili, severe hypoalbuminemia Comments Recommendations 1) Advance PO intake of Glucerna 1.2 as medically feasible and as tolerated to 60 ml/hr goal rate 2) If albumin remains low and RFTs improve, consider Prostat 1pkt BID 3) Consider MVI with 500mg Vit C bid 4) Refer pt to RD/CDE for nutrition education upon discharge 5) Continue current plan of care
--- NOTE | 2019-06-10 15:25 | NUR ---
Patient extubated by RT Extubation order received by Dr. ABARCA, RT at bedside. Patient extubated with no problems, patient tolerated well. Patient placed on40% cool mist mask. Sats prior to extubation 100%, following extubation 99%. Continue to monitor.
[2019-06-10] MEDS ORDERED: LEVETIRACETAM INJ 500 MG in D5W 5% 100 ML IV SCH (16:15)
[2019-06-10] MEDS: DOPamine 1600MCG/ML D5W 250 ML IV SCH (16:15)
--- NOTE | 2019-06-10 16:20 | NUR ---
TRANSITION OF CARE Report given to Caridad RN to take over care of pt., no other problems noted.
[2019-06-10] MEDS: PROPOFOL 100 ML IV SCH (18:23)
[2019-06-10] MEDS: fentaNYL Drip 2500mCg/250mlNS 250 ML IV SCH (18:23)
[2019-06-10] MEDS: NOREPINEPHRINE 8 MG/250ML KIT 250 ML IV SCH (18:49)
[2019-06-11] VITALS (22 sets, daily range): BP systolic 129–161; BP diastolic 60–78
[2019-06-11] MEDS: FREE WATER GT SCH ×5 (00:04→23:04)
[2019-06-11] MEDS: ACCU-CHEK COMFORT CURVE STRIP VI SCH ×4 (00:04→16:53)
[2019-06-11] MEDS: IPRATROPIUM BROM 0.5 MG/2.5ML INH SOL NEB SCH ×6 (02:25→22:19)
[2019-06-11] MEDS: ALBUTEROL SULF 2.5 MG/0.5ML(0.5%) NEB SOLN NEB SCH ×6 (02:25→22:19)
[2019-06-11] MEDS: PIPERACILLIN-TAZOB 2.25GM 50 ML IV SCH ×3 (04:01→19:50)
[2019-06-11] MEDS: SODIUM CHLORIDE 0.9% 1,000 ML IV SCH ×3 (05:18→23:04)
[2019-06-11] MEDS ORDERED: LEVETIRACETAM INJ 500 MG in D5W 5% 100 ML IV SCH (06:00)
[2019-06-11] MEDS: InsuLIN REG 1unit/0.01ml Soln (100units/ml) SC SCH ×4 (06:00→16:53)
[2019-06-11 06:53] LABS: Basophils % (auto) 0.8 % (0.0-2.0); Eosinophils # (auto) 0.2 uL; Hemoglobin 7.3 g/dL (13.5-17.5); Mean Corpuscular Volume 92.1 fL (80.0-100.0); Monocytes # (auto) 0.4 uL; Neutrophils # (auto) 4.9 uL; Nucleated Red Blood Cells % 0.1 %; White Blood Cell 6.1 10^3/uL (4.4-10.8)
[2019-06-11 06:55] LABS: Basophils # (auto) 0 uL; Eosinophils % (auto) 3.2 % (0.0-7.0); Lymphocytes # (auto) 0.5 uL; Lymphocytes % (auto) 8.9 % (10.0-50.0); Mean Corpuscular Hemoglobin 32.1 pg (28.0-32.0); Mean Corpuscular Hgb Conc. 34.9 g/dL (32.0-36.0); Monocytes % (auto) 6.1 % (0.0-12.0); Platelet Count (auto) 66 10^3/uL (140-450); Red Blood Cells 2.28 10^6/uL (4.5-5.90); Red Cell Distribution Width 15.1 % (11.8-14.3)
[2019-06-11 07:08] LABS: Potassium 3.2 mmol/L (3.5-5.1)
[2019-06-11 07:17] LABS: Albumin 1.3 g/dL (3.4-5.0); BUN/Creatinine Ratio 15.3; Calcium 7.4 mg/dL (8.5-10.1); Total Protein 4.7 g/dL (6.4-8.2)
--- NOTE | 2019-06-11 07:45 | NUR ---
REPORT RECEIVED, UPDATED ON PLAN OF CARE. NO DISTRESS NOTED.PATIENT IN SEMI FOWLERS, OPENS EYES SPONTANEOUSLY, ANSWERING SIMPLE QUESTIONS BY NODDING HEAD, RIGHT HAND NOTED TO BE SLIGHTLY RIGID WITH SEVERE WEAKNESS ALONG WITH RIGHT LEG NOTED TO HAVE SEVERE WEAKNESS. PT ON 2L/MIN NC, NON LABORED BREATHING NOTED. OG IN PLACE INFUSING FEEDINGS WITH NO RESIDUAL NOTED AFTER PLACEMENT VERIFICATION. ABD SOFT, ACTIVE BOWEL SOUNDS, MODERATE/ LOOSE SIMPSON STOOL NOTED. JOVAN CARE PROVIDED. PATIENT ABLE TO ASSIST NEEDING MODERATE ASSISTANCE. DRAIN NOTED TO ABD WITH INCISION SITE DRESSED WITH GAUZE AND MEDIPORE TAPE, CDI. DRAIN NOTED TO HAVE DARK GREEN/BROWN OUTPUT. HOPKINS DRAINING, CLEAR LIGHT ELAYNE URINE. MEATAL CARE PROVIDED. PT NOTED TO HAVE SKIN TEARS TO BILATERAL UPPER ARMS WITH BRUISING NOTED THROUGHOUT, SCAB TO UPPER LIP NOTED ALONG WITH ABRASION TO BILATERAL CHEEKBONES. SACRUM NOTED TO HAVE A PINK AREA COVERED WITH ZGAURD AND OPTIFOAM. PATIENT TURNED TO LEFT SIDE, WILL CONTINUE TO REPOSITION AT LEAST EVERY 2 HRS. PITTING EDEMA TO ALL EXT PLUS 1. SEE FURTHER NOTES/ INTERVENTIONS. CALL LIGHT AT REACH, BED IN LOWEST POSITION. BED ALARM ON.
[2019-06-11] MEDS: CALCIUM ACETATE 667 MG CAP NG SCH ×3 (08:00→16:40)
--- NOTE | 2019-06-11 08:00 | NUR ---
MD ROUNDS MORNING CARE PROVIDED. MD UPDATED ON PATIENTS STATUS. NEW ORDERS IN PLACE.
[2019-06-11] MEDS ORDERED: POTASSIUM CHLORIDE 40 MEQ, LIDOCAINE 1% (LOCAL ANESTH.) 4 ML in SODIUM CHL 0.9% 100 ML IV ONE (08:30)
--- NOTE | 2019-06-11 09:30 | NUR ---
Physical therapy at bedside P.T assisted patient oob into chair.
--- NOTE | 2019-06-11 10:00 | NUR ---
CARES [phone] COMPLETE CHAIR BATH PROVIDED. SHAMPOO, BASIN BATH, FACIAL SHAVING AND MOISTURIZED. PATIENT TOLERATED WELL. 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 Central Line Dressing Changes Central line dressing change done with a sterile technique. Cleansed with chloraprep. Occlusive dressing applied.
[2019-06-11] MEDS ORDERED: POTASSIUM CHL 20MEQ/100ML 100 ML IV SCH (10:15)
[2019-06-11] MEDS: PANTOPRAZOLE 40 MG/10 ML VIAL INJ IV SCH (10:40)
[2019-06-11] MEDS: FERROUS SULFATE 300 MG/5 ML ORAL LIQ GT SCH ×2 (10:40→22:00)
--- NOTE | 2019-06-11 14:29 | NUR ---
SWALLOW EVALUATION. FAMILY AND NURSING PRESENT AND TRANSLATED. PATIENT HAS OWN TEETH UPPER AND LOWER. PATIENT ABLE TO TOLERATE PUREE DIET TEXTURE WITH NECTAR THICK LIQUIDS WITH NO OVERT SIGNS OR SYMPTOMS OF ASPIRATION. SOME COUGHING AFTER TRIAL OF THIN LIQUIDS.
--- NOTE | 2019-06-11 14:42 | NUR ---
Family updated on pt status Family of DIVINE SRIVASTAVA updated on patient's status and condition. All questions and concerns addressed. Jordy verbalized understanding.
--- NOTE | 2019-06-11 14:42 | NUR ---
NEUROLOGIST AT BEDSIDE SEE MD ORDERS.
[2019-06-11] MEDS ORDERED: LEVETIRACETAM 500 MG TAB PO ONE (14:45)
[2019-06-11] MEDS ORDERED: carBAMazepine 200 MG TAB PO ONE (14:45)
--- NOTE | 2019-06-11 15:08 | NUR ---
ACTIVITY/ SKIN PATIENT ASSISTED BACK TO BED BY PHYSICAL THERAPY, WHEN PATIENT LIFT TO TRANSFER FROM CHAIR SKIN NOTED TO STICK TO JOVAN PAD AND SKIN TEAR TO SACRUM NOTED. PICTURE TAKEN. NUZHAT AT BEDSIDE AWARE. SKIN CLEANSED, ZGAURD APPLIED TO SURROUNDING AREAS AND OPTIFOAM PLACED.
[2019-06-11] MEDS: DOPamine 1600MCG/ML D5W 250 ML IV SCH (16:15)
[2019-06-11] MEDS: PROPOFOL 100 ML IV SCH (16:40)
[2019-06-11] MEDS: NOREPINEPHRINE 8 MG/250ML KIT 250 ML IV SCH (16:40)
[2019-06-11] MEDS: fentaNYL Drip 2500mCg/250mlNS 250 ML IV SCH (16:41)
--- NOTE | 2019-06-11 16:50 | NUR ---
per charge nurse lab called to resend urine as previous sample was contaminated.
--- NOTE | 2019-06-11 18:51 | NUR ---
NUTRITION PATIENT AMELIA TO FEED SELF USING LEFT HAND. PATIENT TOLERATING PUREED DIET WITH NECTAR THICKENED LIQUIDS. NO COUGHING OR S/S OF ASPIRATION NOTED. STRICT ASPIRATION PRECAUTIONS IN PLACE. Addendum: 06/11/19 at 1857 by Aracelis Bhagat RN ABLE
[2019-06-12] VITALS (18 sets, daily range): BP systolic 149–166; BP diastolic 69–85
[2019-06-12] MEDS: ACCU-CHEK COMFORT CURVE STRIP VI SCH ×4 (00:12→18:00)
[2019-06-12] MEDS: IPRATROPIUM BROM 0.5 MG/2.5ML INH SOL NEB SCH ×6 (02:17→22:12)
[2019-06-12] MEDS: ALBUTEROL SULF 2.5 MG/0.5ML(0.5%) NEB SOLN NEB SCH ×6 (02:17→22:12)
[2019-06-12] MEDS: PIPERACILLIN-TAZOB 2.25GM 50 ML IV SCH ×2 (04:00→12:42)
[2019-06-12 04:27] LABS: Basophils # (auto) 0.1 uL; Eosinophils # (auto) 0.3 uL; Hemoglobin 7.6 g/dL (13.5-17.5); Lymphocytes # (auto) 0.8 uL; Monocytes # (auto) 0.3 uL
[2019-06-12 04:30] LABS: Eosinophils % (auto) 5.9 % (0.0-7.0); Lymphocytes % (auto) 14.7 % (10.0-50.0); Mean Corpuscular Hemoglobin 31.8 pg (28.0-32.0); Mean Corpuscular Hgb Conc. 34.5 g/dL (32.0-36.0); Mean Corpuscular Volume 92.2 fL (80.0-100.0); Monocytes % (auto) 6.4 % (0.0-12.0); Neutrophils # (auto) 3.8 uL; Platelet Count (auto) 70 10^3/uL (140-450); Red Blood Cells 2.39 10^6/uL (4.5-5.90); White Blood Cell 5.3 10^3/uL (4.4-10.8)
[2019-06-12 04:55] LABS: Potassium 3.4 mmol/L (3.5-5.1)
[2019-06-12 05:03] LABS: Albumin 1.4 g/dL (3.4-5.0); BUN/Creatinine Ratio 15.2; Calcium 7.5 mg/dL (8.5-10.1)
[2019-06-12] MEDS: FREE WATER GT SCH ×3 (05:09→18:00)
[2019-06-12] MEDS: InsuLIN REG 1unit/0.01ml Soln (100units/ml) SC SCH ×4 (06:00→18:00)
--- NOTE | 2019-06-12 06:00 | NUR ---
FULL BED BATH AND LINEN CHANGE DONE AT THIS TIME. TOLERATED WELL. VITAL SIGNS STABLE. SKIN ASSESSED FOR CHANGES.
[2019-06-12] MEDS: SODIUM CHLORIDE 0.9% 1,000 ML IV SCH ×4 (06:24→23:13)
--- NOTE | 2019-06-12 07:30 | NUR ---
AM ASSESSMENT COMPLETED. EDUCATED ON POC. PT NODDED HEAD IN AGREEMENT OF UNDERSTANDING, PT APHASIC, UNDERSTANDS BELARUSIAN LANGUAGE. RT SIDE PARALYSIS. LT SIDE WEAK. NEEDS TOTAL ASSISTANCE WITH ADLS. MONITOR ALARMS VERIFIED. VSS, AFEBRILE. PT STABLE TO BE DOWNGRADED ONCE MD ROUNDS ON PT AND ELECTROLYTES GET REPLACED.
[2019-06-12] MEDS: FERROUS SULFATE 300 MG/5 ML ORAL LIQ GT SCH ×2 (09:54→21:06)
[2019-06-12] MEDS: PANTOPRAZOLE 40 MG/10 ML VIAL INJ IV SCH (09:54)
[2019-06-12] MEDS: carBAMazepine 200 MG TAB PO SCH (09:54)
[2019-06-12] MEDS: CALCIUM ACETATE 667 MG CAP NG SCH ×3 (09:55→18:00)
[2019-06-12] MEDS: LEVETIRACETAM 500 MG TAB PO SCH (09:56)
--- NOTE | 2019-06-12 11:09 | NUR ---
DR. CHRISTY ROUNDING ON PT. HE OK PT TO BE TRANSFERRED TO TELEMETRY ONCE CXR IS DONE AND K IS REPLACED. AM LAB ORDERED.
[2019-06-12] MEDS ORDERED: POTASSIUM CHLORIDE 40 MEQ, LIDOCAINE 1% (LOCAL ANESTH.) 4 ML in SODIUM CHL 0.9% 100 ML IV ONE (11:15)
--- NOTE | 2019-06-12 11:40 | NUR ---
PAGED DR. CHRISTY PHARMACIST IS RECOMMENDING TO STOP VANCOMYCIN AND SWITCHING ZOSYN TO ROCEPHIN PT ONLY HAS ECOLI IN THE SPUTUM. AWAITING FOR MD TO RETURN PAGE.
--- NOTE | 2019-06-12 11:46 | NUR ---
DR. HERRERA ROUNDING ON PT HE WANTS PT TO RECEIVE 20 MEQ OF KCL INSTEAD OF 40MEQ THAT WERE ORDERED BY DR. CHRISTY. I WILL FOLLOW DR. HERRERA ORDERS SINCE HE IS THE FUR FEEDER FOLLOWING PT.
[2019-06-12] MEDS ORDERED: POTASSIUM CHL 20MEQ/100ML 100 ML IV ONE (12:00)
--- NOTE | 2019-06-12 13:12 | NUR ---
DR. MONTAÑO ROUNDING ON PT UPDATED ON PTS CONDITION INFORMED HIM OF PHARMACISTS RECOMMENDATION MD REVIEWED PT'S MICROBIOLOGY LAB RESULTS & CXR AND CONCURS WITH PHARMACIST RECOMMENDATIONS. NEW ORDERS RECEIVED TO DE- ESCALATE ATB'S.
--- NOTE | 2019-06-12 14:30 | NUR ---
WOUND CARE NOTE: ORDERED SPECIALTY AIR MATTRESS AT THIS TIME. PATIENT TO BE PLACED, PENDING DELIVERY BY CECY MONIQUE
--- NOTE | 2019-06-12 15:07 | NUR ---
TRANSFERRED PT TO ROOM 275 A VIA BED WITH TELE & O2 PT TOLERATED TRANSFER WELL.
--- NOTE | 2019-06-12 15:15 | NUR ---
Care received report on the patient. Awake lying in bed. No signs of distressed noticed at this time. Bed in lowest position, side rails up x2, and call light is within reach. Will continue to monitor.
--- NOTE | 2019-06-12 18:47 | NUR ---
Respiratory note: at bedside for med [facility].
--- NOTE | 2019-06-12 19:30 | NUR ---
OPENING SHIFT NOTE Assumed care of patient awake and alert to self. Patient is aphasic but is able to nod his head to yes or no questions. When asked if patient had pain or shortness of breath at this time patient nodded no. Patient is on 2L NC, no signs/symptoms of distress noted at his time. Suction and seizure precaution in place. Patient noted to have a draining biliary drain to right quadrant. Instructed on plan of care and to call for assistance as needed, reinforcement needed. Bed is locked in lowest position, side rails x 2 are up, call light is within reach, and bed alarm is on.
[2019-06-12] MEDS ORDERED: cefTRIAXone 1GM/50ML D5W 50 ML IV SCH (21:00)
[2019-06-13] MEDS: ACCU-CHEK COMFORT CURVE STRIP VI SCH ×2 (02:00→05:49)
[2019-06-13] MEDS: ALBUTEROL SULF 2.5 MG/0.5ML(0.5%) NEB SOLN NEB SCH ×3 (02:28→11:22)
[2019-06-13] MEDS: IPRATROPIUM BROM 0.5 MG/2.5ML INH SOL NEB SCH ×3 (02:28→11:22)
--- NOTE | 2019-06-13 04:33 | NUR ---
WOUND CARE Performed wound to bilateral arms and sacrum per wound care nurse recommendations. Patient tolerated well. Patient is laying in bed with even and unlabored respirations. No signs/symptoms of distress noted at this time. Bed is locked in lowest position, side rails x 3 are up, call light is within reach, and bed alarm is on.
[2019-06-13 04:38] VITALS: BP 153/74
[2019-06-13] MEDS: InsuLIN REG 1unit/0.01ml Soln (100units/ml) SC SCH ×2 (05:49)
[2019-06-13] MEDS: FREE WATER GT SCH ×2 (05:50)
--- NOTE | 2019-06-13 05:50 | NUR ---
BILIARY DRAIN OUTPUT Emptied 150ml of dark brown/greenish fluid from bile duct drain.
[2019-06-13] MEDS ORDERED: ALBUTEROL MEDNEB 2.5 mg/3ml NEB ONE ×2 (05:51→10:16)
--- NOTE | 2019-06-13 05:59 | NUR ---
ORANGE JUICE Provided patient an orange juice with thickener. Patient tolerated well. No signs/symptoms of distress noted at this time. Bed is locked in lowest position, side rails x 2 are up, call light is within reach, and bed alarm is on.
[2019-06-13 06:30] LABS: Basophils # (auto) 0.1 uL; Hemoglobin 7.6 g/dL (13.5-17.5); Lymphocytes # (auto) 0.7 uL; Monocytes # (auto) 0.3 uL; White Blood Cell 5.1 10^3/uL (4.4-10.8)
[2019-06-13 06:32] LABS: Basophils % (auto) 1.4 % (0.0-2.0); Eosinophils # (auto) 0.3 uL; Eosinophils % (auto) 6.8 % (0.0-7.0); Lymphocytes % (auto) 13.9 % (10.0-50.0); Mean Corpuscular Hgb Conc. 34.7 g/dL (32.0-36.0); Mean Corpuscular Volume 92.1 fL (80.0-100.0); Monocytes % (auto) 6.4 % (0.0-12.0); Neutrophils # (auto) 3.6 uL; Neutrophils % (auto) 71.5 % (37.0-80.0); Platelet Count (auto) 77 10^3/uL (140-450); Red Blood Cells 2.39 10^6/uL (4.5-5.90); Red Cell Distribution Width 14.8 % (11.8-14.3)
[2019-06-13 06:40] LABS: Potassium 3.4 mmol/L (3.5-5.1)
[2019-06-13 06:52] LABS: Albumin 1.4 g/dL (3.4-5.0); Calcium 7.4 mg/dL (8.5-10.1); Magnesium 1.6 mg/dL (1.6-2.6); Total Protein 4.9 g/dL (6.4-8.2)
[2019-06-13] MEDS: SODIUM CHLORIDE 0.9% 1,000 ML IV SCH (07:45)
[2019-06-13] MEDS: CALCIUM ACETATE 667 MG CAP NG SCH (08:00)
--- NOTE | 2019-06-13 08:15 | NUR ---
Opening Shift Note Received report on the patient. Awake lying in bed. Patient shows no signs of distress. Discussed the plan of care with the patient. Bed in lowest position, side rails up x2, and call light is within reach. Will continue to monitor.
[2019-06-13 09:00] VITALS: BP 161/77
--- NOTE | 2019-06-13 09:19 | NUR ---
MD Dr. Diehl at bedside
[2019-06-13] MEDS ORDERED: POTASSIUM CHL 20 Meq TABLET PO SCH (10:00)
[2019-06-13] MEDS: FERROUS SULFATE 300 MG/5 ML ORAL LIQ GT SCH (10:00)
[2019-06-13] MEDS: PANTOPRAZOLE 40 MG/10 ML VIAL INJ IV SCH (10:00)
[2019-06-13] MEDS ORDERED: cefTRIAXone SOD 1,000 MG VL IV SCH (10:00)
[2019-06-13] MEDS: LEVETIRACETAM 500 MG TAB PO SCH (10:00)
[2019-06-13] MEDS: carBAMazepine 200 MG TAB PO SCH (10:00)
[2019-06-13 10:32] VITALS: BP 99/57
[2019-06-13] MEDS ORDERED: POTASSIUM CHLORIDE 40 MEQ, LIDOCAINE 1% (LOCAL ANESTH.) 4 ML in SODIUM CHL 0.9% 100 ML IV ONE (11:00)
[2019-06-13 12:51] VITALS: BP 147/77
--- NOTE | 2019-06-13 13:06 | NUR ---
Discharge instructions given as ordered. Encourage to follow up with PMD as instructed. All questions and concerns addressed. Patient verbalized understanding. Medication reconciliation form completed and copy given to patient. Home medications held in Pharmacy returned to patient, and needed vaccines given. IV removed with catheter intact, pressure dressing applied, gary catheter remained with a leg bag. Telemetry unit returned to ICU. Patient taken to vehicle via wheelchair with all personal belongings, accompanied by staff and family member. No distress noted at time of departure.
== END 2019-06-13 13:06 | disposition home health service (06) | DRG 720 ==
LOC: EDUNIT# 07:54 → EDBD 07:54 → ER 07:58 → TELE 07:59 → ICU WEST 16:32 → TELE-WESTW 06-12 14:50
PROVIDERS: ADMIT Nurse Practitioner Acute Care; ATTEND Internal Medicine
PROC: 5A1955Z Respiratory Ventilation, Greater than 96 Consecutive Hours (ICD-10-PCS; principal; 2019-06-05)
PROC: 0BH17EZ Insertion of Endotracheal Airway into Trachea, Via Natural or Artificial Opening (ICD-10-PCS; 2019-06-05)
PROC: 02HV33Z Insertion of Infusion Device into Superior Vena Cava, Percutaneous Approach (ICD-10-PCS; 2019-06-05)
PROC: B548ZZA Ultrasonography of Superior Vena Cava, Guidance (ICD-10-PCS; 2019-06-05)
PROC: 30233N1 Transfusion of Nonautologous Red Blood Cells into Peripheral Vein, Percutaneous Approach (ICD-10-PCS; 2019-06-08)
DX: A41.9 Sepsis, unspecified organism (principal); J69.0 Pneumonitis due to inhalation of food and vomit; N17.0 Acute kidney failure with tubular necrosis; J96.00 Acute respiratory failure, unspecified whether with hypoxia or hypercapnia; E43 Unspecified severe protein-calorie malnutrition; R65.21 Severe sepsis with septic shock; G92 Toxic encephalopathy; K83.1 Obstruction of bile duct; E87.2 Acidosis; N17.9 Acute kidney failure, unspecified; N30.00 Acute cystitis without hematuria; G40.909 Epilepsy, unspecified, not intractable, without status epilepticus; E11.649 Type 2 diabetes mellitus with hypoglycemia without coma; E78.5 Hyperlipidemia, unspecified; E11.65 Type 2 diabetes mellitus with hyperglycemia; D64.9 Anemia, unspecified; E11.22 Type 2 diabetes mellitus with diabetic chronic kidney disease; E87.6 Hypokalemia; I10 Essential (primary) hypertension; N26.1 Atrophy of kidney (terminal); Z74.01 Bed confinement status; Z68.35 Body mass index [BMI] 35.0-35.9, adult; I69.920 Aphasia following unspecified cerebrovascular disease; I69.951 Hemiplegia and hemiparesis following unspecified cerebrovascular disease affecting right dominant side
CPT/HCPCS: 36415; 36600; 70450; 71045; 71250; 74176; 80048; 80053; 80202; 80307; 80320; 81001; 82140; 82570; 82805; 82962; 83605; 83615; 83735; 84100; 84156; 84300; 84484; 84550; 85007; 85014; 85018; 85025; 85027; 85610; 85730; 86141; 86850; 86900; 86901; 86920; 87040; 87070; 87077; 87081; 87086; 87186; 87205; 87804; 92610; 93005; 94002; 94003; 94640; 96361; 96365; 96375; 97110; 97530; 99291; C9113; G0378; J0330; J0696; J1815; J2001; J2543; J2704; J3480; J3490; J7060

== ENCOUNTER 2019-06-18 15:30 | Inpatient (IN) | payer MEDICAID ==
[~2019-06-18] VITALS: Ht 157.5 cm; Wt 58.2 kg
[~2019-06-18 15:30] MED LIST changes: -ASPI81TA10 PO; -GLIP10TA9 PO; -METF1000 PO; -SIMV-8 PO; -TAMS0.4C36 PO
[2019-06-18] MEDS ORDERED: ACCU-CHEK COMFORT CURVE STRIP VI ONE ×2 (16:30→16:45)
[2019-06-18] MEDS ORDERED: DEXTROSE (50%) 50ML SYRG IV ONE ×2 (16:30→16:45)
[2019-06-18 17:27] LABS: Basophils # (auto) 0 uL; Basophils % (auto) 0.5 % (0.0-2.0); Eosinophils # (auto) 0.1 uL; Eosinophils % (auto) 0.8 % (0.0-7.0); Hematocrit 26.5 % (41.0-53.0); Lymphocytes # (auto) 0.5 uL; Lymphocytes % (auto) 5.4 % (10.0-50.0); Mean Corpuscular Hemoglobin 31.6 pg (28.0-32.0); Monocytes # (auto) 0.3 uL; Neutrophils # (auto) 7.6 uL; Neutrophils % (auto) 90.3 % (37.0-80.0); Platelet Count (auto) 170 10^3/uL (140-450); Red Blood Cells 2.85 10^6/uL (4.5-5.90); Red Cell Distribution Width 15.7 % (11.8-14.3); White Blood Cell 8.5 10^3/uL (4.4-10.8)
[2019-06-18 17:44] LABS: INR 1.3 (0.9-1.15); Partial Thromboplastin Time 28.6 sec (23.64-32.05)
[2019-06-18 17:54] LABS: Albumin 1.9 g/dL (3.4-5.0); Potassium 3.6 mmol/L (3.5-5.1)
[2019-06-18 17:59] LABS: BUN/Creatinine Ratio 10.7; Total Protein 6.7 g/dL (6.4-8.2)
[2019-06-18] MEDS ORDERED: FUROSEMIDE 40 MG/4 ML VIAL IV ONE (18:00)
[2019-06-18] MEDS ORDERED: VANCOMYCIN 1GM/250ML 250 ML IV ONE (18:00)
[2019-06-18 21:46] LABS: Urine Bacteria FEW /hpf (None Seen); Urine Blood TRACE /uL (Negative); Urine Specific Gravity 1.007 (1.001-1.035); Urine WBC 30 /hpf (0 - 3)
[2019-06-18 22:39] LABS: Alcohol, Urine < 3.0 mg/dL (0-5); Amphetamine Screen, Urine NEGATIVE (NEGATIVE); Barbiturate Scree,Urine NEGATIVE (NEGATIVE); Benzodiazephine Screen, Urine NEGATIVE (NEGATIVE); Cannabinoid Screen, Urine NEGATIVE (NEGATIVE); Cocaine Screen, Urine NEGATIVE (NEGATIVE); Opiate Scree,Urine NEGATIVE (NEGATIVE); Phencyclidine Screen, Urine NEGATIVE (NEGATIVE)
[2019-06-19] MEDS ORDERED: ACETAMINOPHEN 325 MG TAB PO PRN (02:15)
[2019-06-19] MEDS ORDERED: DOCUSATE SOD 100 MG CAP PO PRN (02:15)
[2019-06-19] MEDS ORDERED: VANCOMYCIN PER PHARMACY 0 MG IV SCH (02:15)
[2019-06-19] MEDS ORDERED: MORPHINE SULFATE 4 MG/ML SYR/VIAL IV PRN (02:15)
[2019-06-19] MEDS ORDERED: ONDANSETRON HCL 4 MG/2 ML VIAL IV PRN (02:15)
[2019-06-19] MEDS ORDERED: DEXTROSE (50%) 50ML SYRG IV PRN (02:15)
[2019-06-19] MEDS ORDERED: HYDROcodone-ACET 5/325MG TAB PO PRN (02:15)
[2019-06-19] MEDS ORDERED: PIPERACILLIN-TAZOB 3.375GM 100 ML IV SCH (03:00)
[2019-06-19] MEDS: ACCU-CHEK COMFORT CURVE STRIP VI SCH ×6 (04:00→23:50)
[2019-06-19] MEDS: InsuLIN REG 1unit/0.01ml Soln (100units/ml) SC SCH ×6 (04:00→23:50)
[2019-06-19] MEDS ORDERED: PIPERACILLIN-TAZOB 3.375GM 100 ML IV ONE (04:15)
[2019-06-19] MEDS ORDERED: PIPERACILLIN-TAZOB 2.25GM 50 ML IV SCH (04:15)
[2019-06-19 05:00] VITALS: BP 132/81
[2019-06-19] MEDS: PIPERACILLIN-TAZOB 2.25GM 50 ML IV SCH ×3 (06:55→21:50)
[2019-06-19 07:05] LABS: Basophils # (auto) 0.1 uL; Lymphocytes # (auto) 0.5 uL; Lymphocytes % (auto) 3.2 % (10.0-50.0); Monocytes # (auto) 0.4 uL; Neutrophils % (auto) 92.9 % (37.0-80.0)
[2019-06-19 07:09] LABS: Basophils % (auto) 0.5 % (0.0-2.0); Eosinophils # (auto) 0.1 uL; Eosinophils % (auto) 0.4 % (0.0-7.0); Hematocrit 23.3 % (41.0-53.0); Mean Corpuscular Hemoglobin 31.8 pg (28.0-32.0); Mean Corpuscular Hgb Conc. 34.3 g/dL (32.0-36.0); Mean Corpuscular Volume 92.7 fL (80.0-100.0); Neutrophils # (auto) 13.5 uL; Platelet Count (auto) 156 10^3/uL (140-450); Red Blood Cells 2.51 10^6/uL (4.5-5.90); Red Cell Distribution Width 15.5 % (11.8-14.3); White Blood Cell 14.5 10^3/uL (4.4-10.8)
[2019-06-19 07:21] LABS: Calcium 7.7 mg/dL (8.5-10.1); Potassium 3.6 mmol/L (3.5-5.1)
[2019-06-19 07:23] LABS: BUN/Creatinine Ratio 11.3
[2019-06-19 08:51] VITALS: BP 117/69
[2019-06-19] MEDS ORDERED: MORPHINE SULF INJ 2 MG/ML SYRINGE 1ML IV PRN (09:00)
[2019-06-19] MEDS: LEVETIRACETAM 500 MG TAB PO SCH (09:47)
[2019-06-19] MEDS: carBAMazepine 200 MG TAB PO SCH (09:47)
[2019-06-19] MEDS ORDERED: ENALAPRIL MALEATE 10 MG TAB PO SCH (10:00)
[2019-06-19] MEDS ORDERED: VANCOMYCIN 1GM/250ML 250 ML IV SCH (10:00)
[2019-06-19] MEDS: SODIUM CHLORIDE 0.9% 1,000 ML IV SCH (12:23)
[2019-06-19 13:00] VITALS: BP 117/63
[2019-06-19 17:00] VITALS: BP 128/69
[2019-06-19 21:36] VITALS: BP 110/63
[2019-06-20] MEDS: InsuLIN REG 1unit/0.01ml Soln (100units/ml) SC SCH ×4 (04:00→16:00)
[2019-06-20] MEDS: ACCU-CHEK COMFORT CURVE STRIP VI SCH ×4 (04:06→16:34)
[2019-06-20 04:55] VITALS: BP 119/63
[2019-06-20 05:30] LABS: Basophils # (auto) 0.2 uL; Hemoglobin 7.4 g/dL (13.5-17.5)
[2019-06-20 05:32] LABS: Basophils % (auto) 2.3 % (0.0-2.0); Eosinophils # (auto) 0.2 uL; Eosinophils % (auto) 2.7 % (0.0-7.0); Hematocrit 21.8 % (41.0-53.0); Lymphocytes # (auto) 0.8 uL; Mean Corpuscular Hgb Conc. 34.1 g/dL (32.0-36.0); Mean Corpuscular Volume 93.8 fL (80.0-100.0); Monocytes # (auto) 0.6 uL; Monocytes % (auto) 6.6 % (0.0-12.0); Neutrophils # (auto) 6.6 uL; Neutrophils % (auto) 79.4 % (37.0-80.0); Platelet Count (auto) 145 10^3/uL (140-450); Red Blood Cells 2.32 10^6/uL (4.5-5.90); Red Cell Distribution Width 15.5 % (11.8-14.3); White Blood Cell 8.3 10^3/uL (4.4-10.8)
[2019-06-20] MEDS: PIPERACILLIN-TAZOB 2.25GM 50 ML IV SCH ×2 (05:39→13:59)
[2019-06-20] MEDS: SODIUM CHLORIDE 0.9% 1,000 ML IV SCH (05:39)
[2019-06-20 05:53] LABS: Albumin 1.6 g/dL (3.4-5.0); Calcium 7.7 mg/dL (8.5-10.1); Potassium 3.8 mmol/L (3.5-5.1)
[2019-06-20 05:57] LABS: BUN/Creatinine Ratio 11.1; Bilirubin, Total 2.2 mg/dL (0.2-1.0); Total Protein 5.5 g/dL (6.4-8.2)
[2019-06-20 09:00] VITALS: BP 113/57
[2019-06-20] MEDS: carBAMazepine 200 MG TAB PO SCH (10:16)
[2019-06-20] MEDS: LEVETIRACETAM 500 MG TAB PO SCH (10:16)
[2019-06-20 13:00] VITALS: BP 129/67
[2019-06-20 17:00] VITALS: BP 137/78
[2019-06-20 17:37] VITALS: BP 137/78
[2019-06-20 21:00] VITALS: BP 120/70
== END 2019-06-20 21:00 | DRG 139 ==
LOC: EDBD 15:30 → ER 15:32 → TELE 15:33 → TELE-WESTW 06-19 03:25
PROVIDERS: ADMIT Hospitalist; ATTEND Internal Medicine
DX: J18.9 Pneumonia, unspecified organism (principal); E43 Unspecified severe protein-calorie malnutrition; I50.43 Acute on chronic combined systolic (congestive) and diastolic (congestive) heart failure; E11.649 Type 2 diabetes mellitus with hypoglycemia without coma; E11.21 Type 2 diabetes mellitus with diabetic nephropathy; G40.909 Epilepsy, unspecified, not intractable, without status epilepticus; I11.0 Hypertensive heart disease with heart failure; E78.5 Hyperlipidemia, unspecified; N39.0 Urinary tract infection, site not specified; I69.320 Aphasia following cerebral infarction; Z74.01 Bed confinement status; Z68.23 Body mass index [BMI] 23.0-23.9, adult
CPT/HCPCS: 36415; 71045; 80048; 80053; 80202; 80307; 81001; 82962; 83036; 83605; 83880; 84484; 85025; 85610; 85730; 87040; 87081; 87086; 93005; 96365; 96367; 96375; 97110; 97530; G0378; J2543